=== PATIENT | male | born 1965 | race Caucasian/White ===

== ENCOUNTER 2024-09-27 15:12 | Emergency (ER) | payer BC, SELFPAY ==
[2024-09-27] VITALS (20 sets, daily range): BP systolic 142–166; BP diastolic 86–103; PULSE 70–89; RESP 13–20; TEMP 36.3–36.7; O2SAT 94–96
--- NOTE | 2024-09-27 15:15 | RT.EKG_ITS ---
APPROVED REPORT Exam: Resting ECG Reason for Exam: short of breath. Patient Location: E HR:86 bpm ECG Measurements Heart Rate 86 AXIS DC 151 P 47 QRSd 88 QRS 8 QT 357 T 31 QTc 427 Conclusion Sinus rhythm...normal P axis, V-rate 60- 99
--- NOTE | 2024-09-27 15:30 | DI.CT_ITS ---
Exam(s) CT CHEST PE CTA EXAM: CT CHEST PE CTA CLINICAL HISTORY: shortness of breath, ?PE. TECHNIQUE: Imaging Protocol: Axial CT angiography was performed with multi-slice acquisition and mu lti-planar reconstructions as well as axial, coronal and sagittal MIP reconstructions. Computer aided detection (CAD) was utilized. CONTRAST MATERIAL: Intravenous: Omnipaque 350 Contrast volume:100 ml COMPARISON: No exams were available for comparison FINDINGS: Pulmonary Arteries: No evidence of filling defect to suggest pulmonary emboli. Mediastinum and Mayelin: No dominant adenopathy or fluid collection. Pulmonary parenchyma: No consolidation or dominant measurable mass. Linear atelectasis at the lung bases. Dependent changes. Pleura: No effusion or pneumothorax. Heart: The heart is not dilated. No coronary artery calcifications are seen. Aorta: Thoracic aorta non-dilated. No dissection. Upper abdomen: No acute findings. Bones: Old mild L1 compression fracture. Degenerative changes of the thoracic spine. Tubes, Catheters, and Lines: None Soft tissues: Unremarkable. IMPRESSION: No evidence of pulmonary embolism or other acute abnormality. RADIATION DOSE DELIVERED: Total DLP DATA REPOSITORY: All CT scans at this facility are submitted to the National Radiology Data Registry (NRDR) Dose Index Registry (DIR) with the [employer] (A[employer]). RADIATION OPTIMIZATION: All CT scans at this facility use at least one of these dose optimization te chniques: automated exposure control; mA and/or kV adjustment per patient size (includes targeted exa ms where dose is matched to clinical indication); or iterative reconstruction.
--- NOTE | 2024-09-27 15:33 | ED.GENADUL_ITS ---
Discharge Plan Disposition Patient Disposition: Home Condition: Stable Discharge Details Clinical Impression: Shortness of breath Primary Care Provider: None,None ED Provider: Denny Reyes Home Meds and New Rx's Prescriptions: Continued testosterone cream 1 applic topical BID Discharge Instructions Additional Instructions: Your blood work, EKG and CAT scan did not show any concerning findings at this time. You could have sleep apnea, I would recommend following up with your primary care provider soon as you establish with 1. You may want to asked to be referred for a sleep study especially if this continues If you feel more ill, have severe worsening shortness of breath or severe chest pain return to the emergency department for reevaluation HPI General Mode of arrival: ambulatory . Date/Time Provider Initiated Documentation: 09/27/24 15:13 . Limitations to Documentation: no limitations . Information obtained by: patient . History of Present Illness 59 year old M presents to the emergency department with the chief complaint of interrmittent episodes of dyspnea, described as moderate, and it has been constant. No relieving factors improve symptom(s), No exacerbating factors reported . Patient notes shortness of breath; denies chest pain, fever/chills and nausea/vomiting. Patient did receive the following treatments prior to a rrival, none Related Data Home Medications ?Medication ?Instructions ?Recorded ?Confirmed testosterone 1 applic topical BID 09/27/24 09/27/24 Allergies Allergy/AdvReac Type Severity Reaction Status Date / Time No Known Allergies Allergy Unverified 09/27/24 15:23 General Stated Complaint: RespSymp CAITLIN: 3 Review of Systems All systems reviewed & are unremarkable except as noted in HPI and below Constitutional Constitutional: Denies chills, Denies fever(s) and Denies weakness Cardiovascular Cardiovascular: Denies chest pain and Reports dyspnea Respiratory Respiratory: Denies cough and Reports dyspnea Gastrointestinal Gastrointestinal: Denies abdominal pain, Denies nausea and Denies vomiting Integumentary/Breasts Skin/Breast: Denies rash Neurologic Neurologic: Denies weakness Exam Const General: no acute distress Orientation: alert HENMT Head: normal to inspection Ears: external ears normal General nose exam: external nose normal Mouth: moist mucous membranes Eyes General: appearance normal, both eyes and all related structures Neck Neck: normal visual inspection Resp Effort & Inspection: normal respiratory effort and able to speak in complete sentences Auscultation: clear to auscultation bilaterally Cardio Jugular venous pressure: no JVD Rate: regular rate Heart Sounds: no murmurs GI Palpation: soft and nontender Skin General skin exam: no rashes or lesions noted Neuro General: patient alert and patient oriented x3 Extrem General: normal to inspection Psych Mental Status: mental status grossly normal Course Vital Signs Vital signs: Vital Signs Temperature 36.3 C L 09/27/24 15:16 Pulse 89 09/27/24 15:16 Respiratory Rate 20 09/27/24 15:16 Blood Pressure 160/93 H 09/27/24 15:16 Pulse Oximetry 95 09/27/24 15:16 Temperature 36.3 C L 09/27/24 15:21 Pulse 89 09/27/24 15:21 Respiratory Rate 20 09/27/24 15:21 Respiratory Effort Normal 09/27/24 15:21 Blood Pressure 160/93 H 09/27/24 15:21 Blood Pressure Position Sitting 09/27/24 15:21 Pulse Oximetry 95 09/27/24 15:21 Oxygen Delivery Method Room Air 09/27/24 15:21 Oxygen Flow Rate 0 09/27/24 15:16 Medical Decision Making 59-year-old male who denies any chronic medical problems though he does not see a provider regularly comes in with several weeks of intermittent episodes of shortness of breath. He says that he notices him sometimes when he sleeping and wakes up feeling short of breath and normally gets better when he walks outside. Denies any increased symptoms with exertion, no chest pain or tightness. No chest pressure. No fevers. He is ambulating with no visible signs of respiratory distress on arrival. He is oriented x 4, he has clear lung sounds, no JVD or leg swelling. Given the symptoms do occur while he is sleeping p rimarily I do suspect he could have sleep apnea. I will check for possible NSTEMI with troponins, check a CBC to evaluate for anemia and also check for electrolyte abnormalities with a metabolic panel. Will also obtain a CTA of the chest to exclude PE. Patient stable and has been asymptomatic during stay here. Labs and CT show no acute findings. Given reassuring workup feel he is stable for discharge and follow-up with his PCP, return precautions given Differential Diagnosis Differential Diagnosis: Sleep apnea, anemia, NSTEMI, PE Lab Data Lab results reviewed: Yes I reviewed the patient's lab results. ECG Data Attestation: I personally reviewed and interpreted this ECG (s) as follows: Prior ECG tracings: not available for review Interpretation: sinus rate of 86 pr 151 no stemi Quality:SDOH Health Related Social Needs: No Data to Display PFSH All Active Problems (Updated 09/27/24 @ 17:06 by Denny Reyes MD) Shortness of breath (Acute) Social History Smoking risk assessment performed?: No PAWSS Have you Been Recently Intoxicated or Drunk Within the Last 30 days?: No Have you Ever Experienced Previous Episodes of Alcohol Withdrawal?: No Have you ever Experienced Withdrawal Seizures?: No Have you ever Experienced Delirium Tremens(DT)s?: No Have you ever undergone Alcohol Rehabilitation Treatment (i.e, inpt ot outpatient treatment programs)?: No Have you ever Experienced Blackouts?: No Have you ever Combined Alcohol with other Downers within the last 90 days?: No Have you ever Combined Alcohol with any other Substance of Abuse during the last 90 days?: No Positive Blood Alcohol level on Presentation? [PCS.BAL]: No Evidence of Increased Autonomic Activity (i.e. HR>120, tremor, sweating, agitation, nausea)?: No Result: 0
[2024-09-27 15:47] LABS: Abs Immature Grans 0.06 10^3/uL (0.0-0.06); Absolute Eosinophil Count 0.28 10^3/uL (0.0-0.7); Absolute Lymphocyte Count 2.48 10^3/uL (1.2-3.4); Absolute Monocyte Count 0.77 10^3/uL (0.1-0.8); Absolute Neutrophil Count 6.55 10^3/uL (1.2-6.7); Eosinophils % 2.7 %; HGB 14.4 g/dL (13.5-17.5); Immature Grans % 0.6 %; Lymphocytes % 24.2 %; MCH 29.3 pg (27.0-33.0); MCHC 32.7 % (32.0-36.0); MCV 90 fL (80-95); MPV 8.9 fL (8.0-11.0); Monocytes % 7.5 %; Platelet Count 196 10^3/uL (130-400); RBC 4.91 10^6/uL (4.36-5.78); RDW 12.5 % (11.8-14.1); RDW-SD 41.1 fL; WBC 10.24 10^3/uL (4.4-10.8)
[2024-09-27 16:08] LABS: ALT 30 U/L (16-63); AST 21 U/L (15-37); Albumin 3.7 g/dL (3.4-5.0); Alkaline Phosphatase 71 U/L (46-116); Anion Gap 4.4 mmol/L (3-11); BUN 13 mg/dL (7-18); Bilirubin, Total 0.24 mg/dL (0.2-1.0); CO2 30.6 mmol/L (21.0-32.0); CREATININE 1.1 mg/dL (0.70-1.30); Calcium 9.2 mg/dL (8.5-10.1); Chloride 105 mmol/L (98-107); Estimated GFR 77.81 (mL/min/1.73m2); Glucose 105 mg/dL (74-106); Magnesium 1.9 mg/dL (1.8-2.4); NT-proBNP 80 pg/mL (<300); Potassium 3.9 mmol/L (3.5-5.1); Sodium 140 mmol/L (136-145); TSH (W/Ref FT4) 2.08 uIU/mL (0.36-3.74); Total Protein 7.5 g/dL (6.4-8.2); Troponin I 5 ng/L (<or=76)
[2024-09-27] MEDS: Normal Saline - Diluent 50 ML VIAL IJ (16:32)
[2024-09-27] MEDS: Omnipaque 350 MG/ML 100 ML BTL IJ (16:33)
[2024-09-27 16:56] LABS: Troponin I 5 ng/L (<or=76)
== END 2024-09-27 17:32 | disposition home or self-care (01) ==
LOC: ER 17:17
PROVIDERS: Emergency Provider Emergency Medicine
DX: R06.09 Other forms of dyspnea (principal)
CPT/HCPCS: 71275; 80053; 93005; 99285; 83735; 83880; 84443; 84484; 85025; 93010; 99284; J3490

== ENCOUNTER 2024-10-25 06:12 | Emergency (ER) | payer BC, SELFPAY ==
[2024-10-25] VITALS (35 sets, daily range): BP systolic 118–163; BP diastolic 73–89; PULSE 94–140; RESP 16–27; TEMP 38.1–39.4; O2SAT 92–95
--- NOTE | 2024-10-25 06:15 | RT.EKG_ITS ---
APPROVED REPORT Exam: Resting ECG Reason for Exam: SOB Patient Location: E HR:124 bpm ECG Measurements Heart Rate 124 AXIS HI 134 P 46 QRSd 89 QRS 20 QT 300 T 53 QTc 431 Conclusion Sinus tachycardia...rate> 99 Probable left atrial enlargement...P >50mS, <-0.10mV V1 appropriate intervals no ST segment or T wave abnormalities to suggest occlusive IN
[2024-10-25 06:49] LABS: BE (Venous) 4 mmol/L (-2-3); HCO3 (Venous) 28 mmol/L (23-28); Lactate 0.8 mmol/L (0.6-1.4); O2 Sat (Venous) 76 %; TCO2 (Venous) 25 mmol/L (24-29); pCO2 (Venous) 42 mmHg (41-51); pH (Venous) 7.44 (7.31-7.41); pO2 (Venous) 37 mmHg
[2024-10-25 06:51] LABS: Abs Immature Grans 0.03 10^3/uL (0.0-0.06); HCT 43.5 % (40.0-50.0); HGB 14.4 g/dL (13.5-17.5); MCH 29.3 pg (27.0-33.0); MCHC 33.1 % (32.0-36.0); MCV 88 fL (80-95); Platelet Count 166 10^3/uL (130-400); RBC 4.92 10^6/uL (4.36-5.78); RDW 12.2 % (11.8-14.1); RDW-SD 40.1 fL; WBC 10.95 10^3/uL (4.4-10.8)
--- NOTE | 2024-10-25 06:52 | ED.GENADUL_ITS ---
Discharge Plan Discharge Details Chief Complaint: Fever Clinical Impression: Fever, Tachycardia Primary Care Provider: None,None ED Provider: Daisha Frias Home Meds and New Rx's Prescriptions: No Action testosterone cream 1 applic topical BID anastrozole 1 mg tablet Patient Comments: TAKE ONE TABLET BY MOUTH EVERY WEEK SWALLOWING THE WHOLE TABLET WITH 6-8 O UNCES OF WATER ON AN EMPTY STOMACH REMAIN UPRIGHT FOR AT LEAST 30 HPI General Mode of arrival: ambulatory . Date/Time Provider Initiated Documentation: 10/25/24 06:15 . Limitations to Documentation: no limitations . Information obtained by: patient . HPI Narrative: 59yo previously health male presenting for fever. Has had about one week of persistent sore throat, worsening. No difficulty with secretions, able to take PO without issue however has had minimal appetite for the past week. For the past two days has felt warm; purchased a thermometer yesterday and Tmax of 103F at home. Also has had a cough and mild shortness of breath for several months, currently being worked up by his PCP for this. He also reports unprotected sex about a week ago and would like to be tested for STI's; no symptoms including no dysuria, hematuria, penile discharge, testicular or penile pain. Otherwise in his usual state of health with no rash, nausea, vomiting, abdominal pain, chest pain, LE edema, or other concerns. Related Data Home Medications ?Medication ?Instructions ?Recorded ?Confirmed testosterone 1 applic topical BID 09/27/24 10/25/24 anastrozole 1 mg tablet mg 10/25/24 Allergies Allergy/AdvReac Type Severity Reaction Status Date / Time No Known Allergies Allergy Unverified 10/25/24 06:25 General Stated Complaint: Fever CAITLIN: 3 Review of Systems Narrative: see HPI Exam Narrative Exam Narrative: General: Alert, in no acute distress, slightly diaphoretic. Skin warm to the touch. Head: Normocephalic, atraumatic Neck: Trachea midline, ?Neck supple. ENT: ?MMM.? No oropharygeal lesions or exudate. Cardiac: ?Tachycardiac, regular, no murmurs appreciated Resp: No respiratory distress. CTAB. Abd: ?Soft, non-distended, nontender : ?No suprapubic tenderness. Extremities: ?No deformities.? No peripheral edema. Neurologic: GCS 15. ? Moves all extremities freely against gravity Course Vital Signs Vital signs: Vital Signs Temperature 39.4 C H 12/18/24 06:17 Pulse 140 H 10/25/24 06:17 Respiratory Rate 20 10/25/24 06:17 Blood Pressure 137/89 10/25/24 06:17 Pulse Oximetry 93 10/25/24 06:17 Temperature 39 C H 10/25/24 06:21 Temperature Source Oral 10/25/24 06:21 Pulse 140 H 10/25/24 06:21 Respiratory Rate 20 10/25/24 06:21 Blood Pressure 137/89 10/25/24 06:21 Blood Pressure Position Sitting 10/25/24 06:21 Pulse Oximetry 94 10/25/24 06:21 Oxygen Delivery Method Room Air 10/25/24 06:21 Oxygen Flow Rate 0 10/25/24 06:17 Pain Level 0 10/25/24 06:21 Lab/Test Results Lab/Test Results: 10/25/24 06:30 Tonsil - Not Specified Group A Streptococcus Culture - Pending 10/25/24 06:27 Blood Blood Culture - Pending 10/25/24 06:27 Blood Blood Culture - Pending Laboratory Tests Range/Units 10/25/24 06:39 VBG pH (7.31-7.41) 7.44 H VBG pCO2 (41-51) mmHg 42 VBG pO2 mmHg 37 VBG HCO3 (23-28) mmol/L 28 VBG Total CO2 (24-29) mmol/L 25 VBG O2 Saturation % 76 VBG Base Excess (-2-3) mmol/L 4 H VBG Lactate (0.6-1.4) mmol/L 0.8 Medical Decision Making 59yo previously health male presenting for fever for ~2 days, Tmax of 103F, with one week of sore throat and decreased appetite. Also requested STD testing as he had unprotected sex one week prior. Tachycardiac to 140 on arrival, febrile to 39.4. No hypotension. Some diaphoresis, otherwise reassuring physical exam. Aside from sore throat, no clear infectious symptoms. EKG sinus tachycardia, appropriate intervals, no ST segment or T wave abnormalities to suggest occlusive PA. No chest pain or acute shortness of breath to suggest ACS; would not send troponin. HR may be 2/t to temperature however certainly raises concern for sepsis though viral etiology seems most likely based on history. Will send blood cultures and give 1L IVFB while awaiting results of work, and treat fever with tylenol and IV toradol. With higher suspicion for viral etiology, would not treat empirically with abx at this time. VBG reassuring with no acidosis, lactate normal. Remainder of laboratory workup pending. Signed out to oncoming physican, plan to followup labs, CXR, UA, and reassess. Disposition pending results and clinical course. Quality:SDOH Health Related Social Needs: No Data to Display PFSH All Active Problems (Updated 10/25/24 @ 07:07 by Daisha Frias MD) Tachycardia (Acute) Fever (Acute) Shortness of breath (Acute) Social History Smoking/Tobacco Use Status: Never Smoking risk assessment performed?: Yes Alcohol Intake: current Alcohol Intake frequency: holidays/special occasions only Drug use: Never Substance use type: does not use Housing: apartment
[2024-10-25 07:08] LABS: Mono Screening Negative (Negative)
[2024-10-25] MEDS: Acetaminophen 500 MG TAB 1000 MG PO (07:09)
[2024-10-25] MEDS: Ketorolac 15 MG/ML VIAL IVP (07:09)
[2024-10-25] MEDS: Normal Saline 1,000 ML 1000 ML IV (07:10)
[2024-10-25 07:13] LABS: ALT 31 U/L (16-63); AST 27 U/L (15-37); Albumin 3.4 g/dL (3.4-5.0); Alkaline Phosphatase 74 U/L (46-116); Anion Gap 8.8 mmol/L (3-11); BUN 10 mg/dL (7-18); Bilirubin, Total 0.54 mg/dL (0.2-1.0); CO2 27.2 mmol/L (21.0-32.0); CREATININE 1.2 mg/dL (0.70-1.30); Calcium 8.3 mg/dL (8.5-10.1); Chloride 99 mmol/L (98-107); Glucose 130 mg/dL (74-106); Potassium 3.9 mmol/L (3.5-5.1); Sodium 135 mmol/L (136-145); Total Protein 7.6 g/dL (6.4-8.2)
--- NOTE | 2024-10-25 07:14 | DI.RAD_ITS ---
Exam(s) XR CHEST 2V PA LATERAL EXAM: XR CHEST 2V PA LATERAL CLINICAL HISTORY: fever, cough TECHNIQUE: 2D digital imaging was performed of the chest. Two images were obtained. PA and lateral views were obtained. COMPARISON: CT CT CHEST PE CTA from 09/27/2024 FINDINGS: MEDIASTINUM: Normal. HEART: Normal. PULMONARY VASCULATURE: Normal. LUNGS: No focal consolidating infiltrates. PLEURAL SPACE: No pleural effusion or pneumothorax. BONE:Within normal limits for the patient's age. OTHER FINDINGS:Normal. IMPRESSION: No acute pulmonary findings. DATA REPOSITORY: RADIATION DOSE DELIVERED:
--- NOTE | 2024-10-25 07:22 | W.PCEDHO ---
Registration Status: Primary Language: Preferred Language: ED Information & Data Chief Complaint Fever 10/25/24 06:58 Triage Note pt c/o sore throat, fever, 10/25/24 06:17 chronic cough, no appetite and unprotected sex this past weekend and would like to be tested for STD and elevated HR. denies CP or SOB Most Recent Vital Signs Temperature 39 C H 10/25/24 06:21 Temperature Source Oral 10/25/24 06:21 Pulse 118 H 10/25/24 06:37 Pulse 121 H 10/25/24 06:40 Respiratory Rate 21 10/25/24 06:40 Blood Pressure 163/84 H 10/25/24 06:37 Blood Pressure Mean 113 10/25/24 06:37 Blood Pressure Position Sitting 10/25/24 06:21 Pulse Oximetry 95 10/25/24 06:50 Oxygen Delivery Method Room Air 10/25/24 06:21 Oxygen Flow Rate 0 10/25/24 06:17 Pain Level 6 10/25/24 07:09 Allergies No Known Allergies Allergy (Unverified 10/25/24 06:25) Precautions Isolation PUI 10/25/24 06:21 Active Medications Generic Name Dose Route Start Last Admin Trade Name Freq PRN Reason Stop Dose Admin Sodium Chloride 1,000 mls @ 1,000 mls/hr 10/25/24 06:27 10/25/24 07:10 Saline 1000ml Bag IV 10/25/24 07:26 1,000 mls/hr BOLUS ONE Administration IV IV Catheter Type [Right Saline Lock Antecubital] IV Catheter Gauge [Right 18 Antecubital] Diagnostics 10/25/24 10/25/24 10/25/24 Range/Units 07:17 06:58 06:39 WBC RBC Hgb Hct MCV MCH MCHC RDW Plt Count MPV Immature Gran % Neutrophils % Lymphocytes % Monocytes % Eosinophils % Basophils % Absolute Neutrophils Absolute Lymphocytes Absolute Monocytes Absolute Eosinophils Absolute Basophils VBG pH (7.31-7.41) VBG pCO2 (41-51) mmHg VBG pO2 mmHg VBG HCO3 (23-28) mmol/L VBG Total CO2 (24-29) mmol/L VBG O2 Saturation % VBG Base Excess (-2-3) mmol/L VBG Lactate (0.6-1.4) mmol/L Sodium (136-145) mmol/L Potassium (3.5-5.1) mmol/L Chloride (98-107) mmol/L Carbon Dioxide (21.0-32.0) mmol/L Anion Gap (3-11) mmol/L BUN (7-18) mg/dL Creatinine (0.70-1.30) mg/dL Est GFR (CKD-EPI 2020) (mL/min/1.73m2) Glucose (74-106) mg/dL Calcium (8.5-10.1) mg/dL Total Bilirubin (0.2-1.0) mg/dL AST (15-37) U/L ALT (16-63) U/L Alkaline Phosphatase (46-116) U/L NT-Pro-B Natriuret Pep Total Protein (6.4-8.2) g/dL Albumin (3.4-5.0) g/dL Urine Color Pending Urine Clarity Pending Urine pH Pending Ur Specific [place] Pending Urine Protein Pending Urine Ketones Pending Urine Blood Pending Urine Nitrite Pending Urine Bilirubin Pending Urine Urobilinogen Pending Ur Leukocyte Esterase Pending Urine Glucose Pending Chlamydia DNA Probe Pending Chlamydia/GC DNA Source Pending COVID-19 Source SARS-CoV-2 (PCR) Hep B Core Total Ab Pending Hepatitis C Antibody Pending Monoscreen (Negative) HIV 1&2 Ag/Ab, 4th Gen Pending HIV 1&2 Antibody Rapid Pending Influenza Type A (PCR) Influenza Type B (PCR) N.gonorrhoeae DNA Probe Pending RSV (PCR) 10/25/24 10/25/24 Range/Units 06:39 06:30 WBC Pending RBC Pending Hgb Pending Hct Pending MCV Pending MCH Pending MCHC Pending RDW Pending Plt Count Pending MPV Pending Immature Gran % Pending Neutrophils % Pending Lymphocytes % Pending Monocytes % Pending Eosinophils % Pending Basophils % Pending Absolute Neutrophils Pending Absolute Lymphocytes Pending Absolute Monocytes Pending Absolute Eosinophils Pending Absolute Basophils Pending VBG pH 7.44 H (7.31-7.41) VBG pCO2 42 (41-51) mmHg VBG pO2 37 mmHg VBG HCO3 28 (23-28) mmol/L VBG Total CO2 25 (24-29) mmol/L VBG O2 Saturation 76 % VBG Base Excess 4 H (-2-3) mmol/L VBG Lactate 0.8 (0.6-1.4) mmol/L Sodium 135 L (136-145) mmol/L Potassium 3.9 (3.5-5.1) mmol/L Chloride 99 (98-107) mmol/L Carbon Dioxide 27.2 (21.0-32.0) mmol/L Anion Gap 8.8 (3-11) mmol/L BUN 10 (7-18) mg/dL Creatinine 1.2 (0.70-1.30) mg/dL Est GFR (CKD-EPI 2020) 70.10 (mL/min/1.73m2) Glucose 130 H (74-106) mg/dL Calcium 8.3 L (8.5-10.1) mg/dL Total Bilirubin 0.54 (0.2-1.0) mg/dL AST 27 (15-37) U/L ALT 31 (16-63) U/L Alkaline Phosphatase 74 (46-116) U/L NT-Pro-B Natriuret Pep Pending Total Protein 7.6 (6.4-8.2) g/dL Albumin 3.4 (3.4-5.0) g/dL Urine Color Urine Clarity Urine pH Ur Specific [place] Urine Protein Urine Ketones Urine Blood Urine Nitrite Urine Bilirubin Urine Urobilinogen Ur Leukocyte Esterase Urine Glucose Chlamydia DNA Probe Chlamydia/GC DNA Source COVID-19 Source Pending SARS-CoV-2 (PCR) Pending Hep B Core Total Ab Hepatitis C Antibody Monoscreen Negative (Negative) HIV 1&2 Ag/Ab, 4th Gen Cancelled HIV 1&2 Antibody Rapid Influenza Type A (PCR) Pending Influenza Type B (PCR) Pending N.gonorrhoeae DNA Probe RSV (PCR) Pending 10/25/24 06:27 Blood Culture - Pending Blood 10/25/24 06:30 Group A Streptococcus Culture - Pending Tonsil - Not Specified 10/25/24 06:27 Blood Culture - Pending Blood Intake and Output - 24 Hour Total 10/25/24 06:12 thru 10/25/24 06:55 Intake Total 10 Balance 10 Weight 99.79 kg Intake: IV 10 Falls Risk Assessment History of Falls No History 10/25/24 06:21 Contributing Factors No Factors 10/25/24 06:21 Ambulatory Aids Independent 10/25/24 06:21 Tubes/Lines None 10/25/24 06:21 Gait Evaluation No gait disturbance 10/25/24 06:21 Cognition No cognitive impairment 10/25/24 06:21 Fall Total Score 0 10/25/24 06:21 Level of Risk Standard/Low Risk 10/25/24 06:21 v v v v v v v v v Sending and/or Receiving Nurses: Please use comment section below to note any information pertinent to the patient hand-off not included above. Information / Comments: Report received from: Report received from Victor Manuel Stein RN @ 6:40am.
[2024-10-25 07:29] LABS: COVID-19 PCR Negative (Negative); Influenza A PCR Negative (Negative); Influenza B PCR Negative (Negative); RSV PCR Negative (Negative)
[2024-10-25 07:31] LABS: NT-proBNP 163 pg/mL (<300)
[2024-10-25 07:33] LABS: Source Nasopharynx
[2024-10-25 07:39] LABS: Bilirubin Small (Negative); Blood Trace-intact (Negative); Clarity Clear (Clear); Glucose Negative (Negative); Ketones 40 mg/dL (Negative); Leukocyte Esterase Negative (Negative); Nitrite Negative (Negative); Specific Gravity >= 1.030 (1.005-1.025); Urobilinogen 0.2 mg/dL (Up to 0.2)
[2024-10-25 07:42] LABS: Absolute Eosinophil Count 1.42 10^3/uL (0.0-0.7); Absolute Lymphocyte Count 0.99 10^3/uL (1.2-3.4); Absolute Monocyte Count 0.66 10^3/uL (0.1-0.8); Absolute Neutrophil Count 7.88 10^3/uL (1.2-6.7); Atypical Lymphocytes % 0 %; Bands % 0 %; Metamyelocytes % 0; Myelocytes % 0; Promyelocytes % 0
[2024-10-25 07:43] LABS: Diff Comment Manual Differential
[2024-10-25 07:57] LABS: Bacteria Few HPF (Negative); C & S Indicated? No; Casts Negative LPF (Negative); Crystals Negative HPF (Negative); Epithelial Cells Rare HPF (Negative); Mucus Heavy (Negative); Other Cells Negative (Negative)
--- NOTE | 2024-10-25 09:16 | W.EDPROG ---
Date of service: 10/25/24 Time of Service: 09:17 Medical Decision Making Patient's workup relatively unremarkable, minimal elevation of his white count at 10.9, he does have labs pending including a tick panel, HIV screening and hepatitis panel. He says he unprotected sex on Wednesday so would be very unlikely that his fever and symptoms are due to HIV is quick. X-ray on my read is unremarkable. He is stable, he was sleeping when I reassessed him and awakens easily to voice. He feels significantly better after having Toradol. He has no meningismus, no headaches. No cough, clear lung sounds. He denies any IV drug use and has no murmurs, no rashes or lesion on his hand or feet so I doubt endocarditis. His primary complaint other than the fever was a sore throat, his posterior pharynx does have erythema, midline uvula, no submandibular swelling, no pain over the hyoid restricted neck movements. He has no findings on exam to suggest epiglottitis, retropharyngeal abscess or peritonsillar abscess. Given the sore throat and fever and erythema of the posterior pharynx neck is reasonable to initiate antibiotics for potential bacterial pharyngitis and possibly strep. He feels well enough for discharge, he will follow-up with his PCP if symptoms continue and return precautions given Quality:SDOH Health Related Social Needs: No Data to Display Discharge Plan Disposition Patient Disposition: Home Condition: Stable Discharge Details Clinical Impression: Fever, Tachycardia, Sore throat Primary Care Provider: None,None ED Provider: Denny Reyes Home Meds and New Rx's Prescriptions: New amoxicillin 875 mg tablet 875 mg PO BID 7 Days Qty: 14 0RF Continued testosterone cream 1 applic topical BID anastrozole 1 mg tablet Patient Comments: TAKE ONE TABLET BY MOUTH EVERY WEEK SWALLOWING THE WHOLE TABLET WITH 6-8 OUNCES OF WATER ON AN EMPTY STOMACH REMAIN UPRIGHT FOR AT LEAST 30 Discharge Instructions Additional Instructions: Your blood work today was unremarkable. There are still pending test such as an HIV screening and hepatitis screen as well as a tick panel screening. If any of these are positive you will receive a phone call Follow-up with your primary care provider especially if symptoms continue in a week If you feel more ill, have inability to swallow liquids or new symptoms such as persistent vomiting or difficulty breathing return to the emergency department for reevaluation
[2024-10-25] MEDS: Amoxicillin 875 MG TAB PO (09:25)
--- NOTE | 2024-10-25 09:40 | DI.VRAD_ITS ---
PROCEDURE INFORMATION: Exam: XR Chest Exam date and time: 10/25/2024 7:04 AM Age: 59 years old Clinical indication: Cough and fever; Patient HX: Cough, fever TECHNIQUE: Imaging protocol: Radiologic exam of the chest. Views: 2 views. COMPARISON: CT CHEST PE CTA 09/27/2024 4:37 PM FINDINGS: Lungs: There are persistent streaky linear bibasilar opacities, suspected scarring. No consolidation. No pulmonary edema. The pulmonary vasculature is normal in caliber. Pleural spaces: No pleural effusion or pneumothorax. Heart/Mediastinum: Heart size and cardiomediastinal contours are normal. There is atherosclerotic mural calcification at the aortic arch. Bones/joints: Unremarkable. IMPRESSION: No acute cardiopulmonary abnormality. No consolidation. Dictated and Authenticated by: Myra Luevano MD. Ordering:LANA Ashton MD
[2024-10-25 11:50] LABS: Lab Add On Test DONE
[2024-10-25 20:54] LABS: Hep B Core Antibody Negative (Negative)
[2024-10-25 20:56] LABS: HIV-1/2 Ag & Ab Screen Negative (Negative)
[2024-10-25 21:01] LABS: Hepatitis C Ab w Rflx HCV PCR Negative (Negative)
[2024-10-26 09:47] LABS: Lyme Ab w Rflx to Lyme Confirm Negative (Negative)
[2024-10-26 12:51] LABS: Chlamydia Result Negative (Negative); GC Result Negative (Negative)
[2024-10-28 15:32] LABS: Anaplasma phagocytophilum Negative (Negative); B. miyamotoi PCR Negative (Negative); Babesia divergens/MO-1 Negative (Negative); Babesia duncani Negative (Negative); Babesia microti Negative (Negative); Ehrlichia chaffeensis Negative (Negative); Ehrlichia ewingii/canis Negative (Negative); Ehrlichia muris eauclairensis Negative (Negative)
== END 2024-10-25 09:32 | disposition home or self-care (01) ==
PROVIDERS: Student in an Organized Health Care Education/Training Program; Emergency Provider Emergency Medicine
DX: R50.9 Fever, unspecified (principal); R05.9 Cough, unspecified; R00.0 Tachycardia, unspecified
CPT/HCPCS: 00123; 36415; 80053; 82805; 86704; 86803; 87040; 87389; 87491; 87591; 87637; 87798; 93005; 96361; 96374; 99285; 71046; 81003; 81015; 83605; 83880; 85025; 86308; 86618; 87081; 93010; 99284; J1885

== ENCOUNTER 2024-11-10 01:27 | Outpatient (CLI) | payer BC, SELFPAY ==
--- OUTSIDE RECORDS SUMMARY | 2024-11-10 01:29 | XMS_ITS | Encounter Summary ---
Author Organization [facility] Address [address] [place] [address] Care Team Providers Care Assistant Chief Train Dispatcher Name Role Phone Tony Bose MD Primary Care Provid er Reason for Visit * Reason Comments Back Pain Encounter Details Date Type Department Care Team (Late st Contact Info) Description 01/10/2013 14:30 EST Office Visit [facility] Spine Program - [address] [place] [address] Ena Johnston MD [address] [place] [address] [place] [address] Fracture of transverse process of thoracic vertebra (CMS-HCC) (HCC-CMS) (Primary Dx); L2 vertebral fracture (CMS-HCC) (HCC-CMS); Left scapula fracture; Multiple trauma; Snowboarding accident; Wedge compression fracture of T9 vertebra (CMS-HCC) (HCC-CMS) Discharge Disposition: Auto Discharge Social History Tobacco Use Types Packs/Day Years Used Date Smoking Tobacco: Never Alcohol Use Standard Drinks/Week Comments No 0 (1 standard drink = 0.6 oz pur e alcohol) Sex and Gender Information Value Date Recorded Sex Assigned at Not on file Legal Sex Male 18:36 EST Gender Identity Not on file Sexual Orientation Not on file documented as of this encounter Mental Status * Because of a physical, mental, or emotional condition, do you have serious difficulty concentrating, remembering, or making decisions? (5 years old or older) Answer Entry Date Author Yes 11/26/2012 21:58 EST Lydia Sutton documented in this encounter Discharge Disposition Disposition Code Departure Means Destination Auto Discharge documented in this encounter Progress Notes * Karen Johnston MD - 01/11/2013 7407 EST PROBLEM: Skiing crash 11/26/2012: 1. A left scapular body fracture, minimally displaced. 2. Left transverse process fractures of T3 to T9. 3. A T9 anterior superior endplate compression fracture. 4. An L1 two-column burst fracture with minimal height loss and some retropulsion. 1. TLSO bracing. 5. Post concussive symptoms Mr. Fernandez comes in for his 6 week follow up. He's on track, with a drop in his sharp pain as expected. He remains very fatigued. He is wearing his brace mostly director multimedia, has had it off some at night as I indicated he could. He continues to have some post concussive symptoms, mostly disorientation and difficulty concentrating - he is still taking narcotics which may contribute as well. Overall,however, he's up and around a bit more and doing okay. His left shoulder feels better; he has noticed a bump along the lateral margin of his sternum consistent with a rib head dislocation or fracture. No neurologic symptoms other than the occasional fit of tingling or oddness, which pass quickly. O: Xrays of the left scapula show interval callus formation. Xrays of the spine OOB demonstrate maintained alignment and some progressive healing at L1. His TLSO fits well, although he has lost some weight. MDM: Currently on course. I expect that his energy level, appetite will start to return over the next six weeks and that plus being able to wean off the narcotics will tell us that he's ready to start some rehab activity. In the meanwhile I have cleared him to have his brace off for quiet activities around his house, and to use an exercise bike with the brace on. We'll plan xrays in 6 weeks (upright lateral L centered at L1, T centered at T9) and if those look good we'll plan some formal rehab.Will need shoulder films with his spine films in May. Karen Johnston MD Cc. Patient. Dr. Bose documented in this encounter Plan of Treatment Not on file documented as of this encounter Visit Diagnoses Diagnosis Fracture of transverse process of thoracic vertebra (HCC-CMS)- Primary Closed fracture of dorsal (thoracic) vertebra without mention of spinal cord injury L2 vertebral fracture (HCC-CMS) Closed fracture of lumbar vertebra without mention of spinal cord injury Left scapula fracture Closed fracture of unspecified part of scapula Multiple trauma Injury, other and unspecified, other specified sites, including multiple Snowboarding accident Fall from snowboard Wedge compression fracture of T9 vertebra (HCC-CMS) Closed fracture of dorsal (thoracic) vertebra without mention of spinal cord injury documented in this encounter Care Teams Assistant Chief Train Dispatcher Relationship Specialty Start Date End Date Tony Bose MD [address] [place] [phone] PCP - General 11/26/12 documented as of this encounter
--- OUTSIDE RECORDS SUMMARY | 2024-11-10 01:29 | XMS_ITS | Encounter Summary ---
Author Organization [facility] Address [address] [place] [address] Care Team Providers Care Collet Making Machine Operator Name Role Phone Tony Bose MD Primary Care Provid er Reason for Referral * Consult, Test and Treat (Routine/Next Available) - Closed Specialty Diagnoses / Procedures Referred By Contac t Referred To Contact Diagnoses Vertebral fracture Scapular fracture Ena Johnston MD Phone: tel: fax: Referral ID Status Reason Start Date Expiration Date V isits Requested Visits Authorized [id number] Closed Specialty Services Required 02/22/2013 1 1 Question Answer Reason for Request: L1, T9, scapular fracture, sternal fx Comments Rehab gym. Starting brace wean, no specific restrictions, will need core work.Shou Shoulder ROM as tolerated. Reason for Visit * Reason Comments Back Pain Encounter Details Date Type Department Care Team (Late st Contact Info) Description 02/22/2013 8:30 EDT Office Visit [facility] Spine Program - [address] [id number] Ena Johnston MD [address] [facility] [place] [address] Vertebral fracture (Primary Dx); Scapular fracture; L2 vertebral fracture (CMS-HCC) (HCC-CMS); Wedge compression fracture of T9 vertebra (CMS-HCC) ([facility]-CMS) Discharge Disposition: Auto Discharge Social History Tobacco [...] Progress Notes * Karen Johnston MD - 02/22/2013 1005 EDT PROBLEM: Skiing crash 11/26/2012: 1. A left scapular body fracture, minimally displaced. 2. Left transverse process fractures of T3 to T9. 3. A T9 anterior superior endplate compression fracture. 4. An L1 two-column burst fracture with minimal height loss and some retropulsion. 1. TLSO bracing. 5. Post concussive symptoms Yunior comes in for routine follow up. He's now about four months out. He has started being out of his brace for short periods of time and that is going well. He wonders about returning to work schedule. We have not started formal rehabilitation yet. His shoulder has some localized burning and popping, but otherwise is doing okay. He is quite deconditioned. O: Xrays today demonstrate maintained alignment and interval healing of both fractures. MDM: We can start a formal brace wean and I have given him a referral to start PT with the [facility], with all exercise okay out of the brace. 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 With respect to work, I think it is still too early although it would be reasonable for him to do somelimited hours in a few weeks if his workplace is cooperative; that and his progress with rehab will give us some baseline information to help plan a more formal return to work as he gets to the 6 month jonh. I have given him paperwork for this and we will plan on meeting in 2 mos. Upright lateral Tcentered at T9 and L centered at L2 prior to being seen. Karen Johnston MD Cc. 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 __X_ Lifting limitations ____No lifting __X_ Reduced work hours __Maximum 3 hours until seen again ___ Restricted gym/athletic activities Other restrictions: DIAGNOSTIC TESTS PLANNED: Plan: Rehabilitation starting FOLLOW-UP PLANS: Scheduled appt: SpINE Date: 2 mos Other: None/PRN: Telephone call: When By Whom: Karen Johnston MD documented in this encounter Plan of Treatment Scheduled Referrals Name Type Priority Associated Diagnoses Orde r Schedule AMB CONSULT PHYSICAL THERAPY Outpatient Referral Routine Vertebral fracture Scapular fracture Ordered: 02/22/2013 documented as of this encounter Visit Diagnoses Diagnosis Vertebral fracture- Primary Closed fracture of unspecified part of vertebral column without mention of spinal cord injury Scapular fracture Closed fracture of unspecified part of scapula L2 vertebral fracture (HCC-CMS) Closed fracture of lumbar vertebra without mention of spinal cord injury Wedge compression fracture of T9 vertebra (HCC-CMS) Closed fracture of dorsal (thoracic) vertebra without mention of spinal cord injury documented in this encounter Care Teams Collet Making Machine Operator Relationship Specialty Start Date End Date Tony Bose MD [address] [place] [id number] PCP - General 11/26/12 documented as of this encounter
--- OUTSIDE RECORDS SUMMARY | 2024-11-10 01:29 | XMS_ITS | Encounter Summary ---
Author Organization [facility] Address [address] [place] [address] Care Team Providers Care Fryline Attendant Name Role Phone Tony Bose MD Primary Care Provid er Reason for Visit * Reason Onset Date Comments Appointment Related 04/28/2013 Encounter Details Date Type Department Care Team (Late st Contact Info) Description 04/28/2013 Telephone [facility] Spine Program - [address] [place] [address] Crystal Wesley MD [address] [place], [place] [address]ey [facility] [place] [address] Appointment Related Social History Tobacco Use Types Packs/Day Years [...] EST Lydia Sutton documented in this encounter Miscellaneous Notes * Telephone Encounter - Arturo Byrd Jr. - 04/28/2013 8610 EDT Pt notified for his appointment at Pain Medicine with Dr. Moreno on 05/01/13 with check in at 9:15 am. documented in this encounter Plan of Treatment Not on file documented as of this encounter Visit Diagnoses Not on filedocumented in this encounter Care Teams Fryline Attendant Relationship Specialty Start Date End Date Tony Bose MD [address] [place] [address] PCP - General 11/26/12 documented as of this encounter
--- OUTSIDE RECORDS SUMMARY | 2024-11-10 01:29 | XMS_ITS | Encounter Summary ---
Author Organization [facility] Address [address] [place] [address] Care Team Providers Care Computer Game Programmer Name Role Phone Tony Bose MD Primary Care Provid er Reason for Visit * Reason Onset Date Comments Trauma 12/06/2012 Encounter Details Date Type Department Care Team (Late st Contact Info) Description 12/06/2012 Orders Only [facility] Spine Program - [address] [place] [address] Burak Cates LPN [address] [place] [id number] Social History Tobacco Use Types Packs/Day Years [...] Entry Date Author Yes 11/26/2012 21:58 EST Nazariocindi Lydia susie documented in this encounter Ordered Prescriptions Prescription Sig Dispense Quantity Refills Last Filled Start Date End Date oxycodone (ROXICODONE) 5 mg immediate release tablet Take 1-2 Tabs by mouth every 4 hours as needed for Pain. 100 Tab 0 12/06/2012 10/10/2013 documented in this encounter Plan of Treatment Not on file documented as of this encounter Visit Diagnoses Not on filedocumented in this encounter Care Teams Computer Game Programmer Relationship Specialty Start Date End Date Tony Bose MD [address] [place] [address] PCP - General 11/26/12 documented as of this encounter
--- OUTSIDE RECORDS SUMMARY | 2024-11-10 01:29 | XMS_ITS | Encounter Summary ---
Author Organization [facility] Address [address] [place] [address] Care Team Providers Care Software Quality Analyst Name Role Phone Tony Bose MD Primary Care Provid er Reason for Visit * Reason Onset Date Comments Rib Pain 12/06/2012 Encounter Details Date Type Department Care Team (Late st Contact Info) Description 12/06/2012 Telephone [facility] Spine Program [place] [address] Burak Cates LPN [address] [place] [address] Rib Pain Social History Tobacco Use Types Packs/Day Years [...] encounter Miscellaneous Notes * Telephone Encounter - Burak Cates Jr., VARINDER - 12/06/2012 0838 EST Received a call from [place] Saying he was having problems with his pain medication inthat it is giving him very bad headaches every time he takes it. He now will only take when he really has to but otherwise is in a great deal of pain all the time.She is also worried about his brace not fitting well and causing a lump where one of his ribs are broken. I have asked them to come into the office if he is able to travel so we can have a look at things and possibly change his Rx. documented in this encounter Plan of Treatment Not on file documented as of this encounter Visit Diagnoses Not on filedocumented in this encounter Care Teams Software Quality Analyst Relationship Specialty Start Date End Date Tony Bose MD [address] [place] [id number] PCP - General 11/26/12 documented as of this encounter
--- OUTSIDE RECORDS SUMMARY | 2024-11-10 01:29 | XMS_ITS | Encounter Summary ---
Author Organization [facility] Address [address] [place] [address] Care Team Providers Care Cupola Repairer Name Role Phone Tony Bose MD Primary Care Provid er Encounter Details Date Type Department Care Team (Late st Contact Info) Description 07/09/2023 Lab Requisition [facility] Pathology & Laboratory Medicine - [facility] [address] [place] [address] Tony Bose MD [address] [place] [id number] Encounter for screening for malignant neoplasm of prostate Social History Tobacco Use Types Packs/Day Years Used Date Smoking Tobacco: Never Smokeless Tobacco: Never Alcohol Use Standard Drinks/Week Comments Yes 7 (1 standard drink = 0.6 oz pur e alcohol) occas PHQ-2 Answer Date Recorded PHQ-2 SUBTOTAL 0 02/19/2023 Interpersonal Safety Answer Date Record ed Physically Hurt Never 06/09/2020 Verbally Threaten Not on file 06/09/2020 Sex and Gender Information Value Date Recorded Sex Assigned at Not on file Legal Sex Male 18:36 EST Gender Identity Not on file Sexual Orientation Not on file documented as of this encounter Functional Status * Because of a physical, mental, or emotional condition, does this person have difficulty doing errands alone such as visiting a doctor's office or shopping? Answer Date of Assessment Author No 08/19/2016 7:37 EDT documented as of this encounter Mental Status * Because of a physical, mental, or emotional condition, does this person have serious difficulty concentrating, remembering, or making decisions? Answer Entry Date Author No 08/19/2016 7:37 EDT Wandy Sutton aret documented in this encounter Plan of Treatment Not on file documented as of this encounter Procedures Procedure Name Priority Date/Time Associated Diagnosis Comments PSA SCREEN Today 07/09/2023 19:09 EDT Encounter for screening for malignant neoplasm of prostate documented in this encounter Results * PSA SCREEN (07/09/2023 19:09 EDT) PSA 1.8 <=3.5 ng/mL 07/12/2023 8:59 EDT [facility] Blood VENOUS BLOOD / Unknown 07/09/2023 19:09 EDT 07/09/2023 20:20 EDT Narrative [facility] - 07/12/2023 8:59 EDT NOTE: Serum PSA concentration should not be interpreted as absolute evidence for the presence or absence of malignant disease. Assayed on Siemens EasilyDoIA Eco-Vacayaur XPT using chemiluminescent technology.??Values obtained by using different assay methods cannot be used interchangeably. us Tony Bose MD CHEMISTRY & BLOOD GA S ORDERABLES Final Result [facility] [address] [place] [address] documented in this encounter Visit Diagnoses Diagnosis Encounter for screening for malignant neoplasm of prostate Special screening for malignant neoplasm of prostate documented in this encounter Care Teams Cupola Repairer Relationship Specialty Start Date End Date Tony Bose MD [address] [place] [id number] PCP - General 11/26/12 documented as of this encounter
--- OUTSIDE RECORDS SUMMARY | 2024-11-10 01:29 | XMS_ITS | Encounter Summary ---
Author Organization [facility] Address [address] [place] [address] Care Team Providers Care Crude Oil Driver Name Role Phone Tony Bose MD Primary Care Provid er Encounter Details Date Type Department Care Team (Late st Contact Info) Description 10/25/2024 Lab Requisition [facility] Pathology & Laboratory Medicine - [facility] [address] [place] [address] Outr Resulting Lab, Provider Social History Tobacco Use Types Packs/Day Years [...] Procedure Name Priority Date/Time Associated Diagnosis Comments HEPATITIS C AB W REFLEX TO HCV RNA BY PCR Routine 10/25/2024 6:39 EST HEPATITIS B CORE ANTIBODY (TOTAL) Routine 10/25/2024 6:39 EST documented in this encounter Results * HEPATITIS B CORE ANTIBODY (TOTAL) (10/25/2024 6:39 EST) Hepatitis B Core Ab, Total Negative Negative 10/25/2024 20:49 EST [facility] Blood VENOUS BLOOD / Unknown 10/25/2024 6:39 EST 10/25/2024 17:38 EST us Provider Outr Resulting Lab CHEMISTRY & BLOOD GA S ORDERABLES Final Result Performing Organization Address [facility] Co de Phone Number [facility] [address] [place] [address] * HEPATITIS C AB W REFLEX TO HCV RNA BY PCR (10/25/2024 6:39 EST) Hep C Antibody Negative Negative 10/25/2024 20:56 EST [facility] Blood VENOUS BLOOD / Unknown 10/25/2024 6:39 EST 10/25/2024 17:38 EST us Provider Outr Resulting Lab CHEMISTRY & BLOOD GA S ORDERABLES Final Result Performing Organization Address City/[facility]/ZIP Co de Phone Number [facility] [address] [place], [place] [phone] documented in this encounter Visit Diagnoses Not on filedocumented in this encounter Care Teams Crude Oil Driver Relationship Specialty Start Date End Date Tony Bose MD [address] [place] [id number] PCP - General 11/26/12 documented as of this encounter
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
--- OUTSIDE RECORDS SUMMARY | 2024-11-10 01:29 | XMS_ITS | Encounter Summary ---
Author Organization [facility] Address [address] [place] [address] Care Team Providers Care Gear Changer Name Role Phone Tony Bose MD Primary Care Provid er Encounter Details Date Type Department Care Team (Late st Contact Info) Description 05/09/2020 Lab Requisition [facility] Pathology & Laboratory Medicine - [facility] [address] [place] [address] Rakesh Casanova MD [address] [place] [address] [place] [phone] Neoplasm of uncertain behavior of skin Social History Tobacco Use Types Packs/Day Years [...] Author No 08/19/2016 7:37 EDT Wandy Sutton aretenzin documented in this encounter Plan of Treatment Not on file documented as of this encounter Procedures Procedure Name Priority Date/Time Associated Diagnosis Comments SURGICAL PATHOLOGY Today 05/09/2020 10 :46 EDT Neoplasm of uncertain behavior of skin documented in this encounter Results * SURGICAL PATHOLOGY (05/09/2020 10:46 EDT) Final Diagnosis A. SKIN OF CHEEK, LEFT SUPERIOR CENTRAL MALAR, SHAVE BIOPSY: - Basal cell carcinoma, nodular type. - Lesion extends to biopsy base. 05/13/2020 9:25 EDT [facility] at 0925 Attestation By the signature below, the attending physician certifies that they have 1) personally conducted a gross and/or microscopic examination of the described specimen(s), and/or personally interpreted the results of laboratory testing of the described specimen(s), and 2) personally rendered or confirmed the above diagnosis. 05/13/2020 9:25 EDT [facility] at 0925 Clinical History 4 mm eroded papule; rule-out basal cell carcinoma 05/13/2020 9:25 EDT [facility] Gross Description A. Received in formalin labelled with proper patient identification (initials M, S) and A. Left superior central malar... is a shave biopsy of relatively smooth pale cutler focally cutler skin (0.7 x 0.4 x 0.1 cm). The margin is inked blue. The specimen is bisected and entirely submitted in A1. Jack Sumner 05/11/2020 13:00 05/13/2020 9:25 EDT [facility] Scanned Images 05/13/2020 9:25 EDT [facility] Tissue TISSUE SPECIMEN FROM SKIN / Unknown 05/09/2020 10:46 EDT 05/09/2020 19:33 EDT us Rakesh Casanova MD PATHOLOGY ORDERABLES Fi nal Result [facility] [address] [place] [address] documented in this encounter Visit Diagnoses Diagnosis Neoplasm of uncertain behavior of skin documented in this encounter Care Teams Gear Changer Relationship Specialty Start Date End Date Tony Bose MD [address] [place] [id number] PCP - General 11/26/12 documented as of this encounter
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
--- OUTSIDE RECORDS SUMMARY | 2024-11-10 01:29 | XMS_ITS | Encounter Summary ---
Author Organization [facility] Address [address] [place] [address] Care Team Providers Care Impregnating Helper Name Role Phone Tony Bose MD Primary Care Provid er Encounter Details Date Type Department Care Team (Late st Contact Info) Description 12/15/2012 Abstract [facility] - [address] [address] Apple Gonzalez PA-C [address] [place] [phone] Social History Tobacco Use Types Packs/Day Years [...] Author Yes 11/26/2012 21:58 EST Nazariocindi Lydia richards documented in this encounter Plan of Treatment Not on file documented as of this encounter Visit Diagnoses Not on filedocumented in this encounter Care Teams Impregnating Helper Relationship Specialty Start Date End Date Tony Bose MD [address] [place] [address] PCP - General 11/26/12 documented as of this encounter
--- OUTSIDE RECORDS SUMMARY | 2024-11-10 01:29 | XMS_ITS | Encounter Summary ---
Author Organization [facility] Address [address] [place] [address] Care Team Providers Care Roll Or Tape Edge Machine Operator Name Role Phone Tony Bose MD Primary Care Provid er Encounter Details Date Type Department Care Team (Latest Contact Info) Description 05/23/2015 8:56 EDT - 05/23/2015 13:45 EDT Hospital Encounter [facility] Perioperative Services - [address] [phone] Claus Ledbetter MD [address] [place] [id number] Inguinal hernia without mention of obstruction or gangrene, unilateral or unspecified, (not specified as recurrent) (Primary Dx) Discharge Disposition: Home or Self [...] Sign Reading Time Taken Comments Blood Pressure 119/71 05/23/2015 1330 EDT Pulse - - Temperature 36 ??C (96.8 ??F) 05/23/2015 1330 EDT Respiratory Rate 14 05/23/2015 1330 EDT Oxygen Saturation 95% 05/23/2015 1330 EDT Inhaled Oxygen Concentration - - Weight 88.5 kg (195 lb) 05/16/2015 1008 EDT Height 188 cm (6' 2) 05/16/2015 1008 EDT Body Mass Index 25.04 05/16/2015 1008 EDT documented in this encounter Mental Status * Because of a physical, mental, or emotional condition, do you have serious difficulty concentrating, remembering, or making decisions? (5 years old or older) Answer Entry Date Author Yes 11/26/2012 21:58 Lydia Escobar documented in this encounter Discharge Instructions * Discharge Instr - Activity* Claus Ledbetter - 05/23/2015 13:05 EDT DISCHARGE INSTRUCTIONS: Your surgeon is Dr. Claus Ledbetter. He can be reached by telephone at [phone]. His office address is [address] [place] [address]. Wound Care: Your dressings should remain in place and you should keep the wound dry for 48 hours after your surgery. You may then remove the dressing(s) and take a shower but you should not submerge the wound(s)under water ie. No swimming or sitting in tubs of water. If there are steristrips in place (small white butterfly tapes crossing the wound) leave them on for a week. They will usually remain in place even if you get them wet in the shower as long as you dab them dry instead of rubbing them. It isnormal to feel a ridge under the incision - so don't be alarmed. Bruising around the wound is also common. You may apply an ice pack to the wound (except wounds that are left open) for soreness. Apply the ice directly to the skin or over a thin cloth for 20 minutes every 4 hours as needed. You should contact Dr. Ledbetter if your wound becomes increasingly red or increasingly painful or if starts todrain pus or blood. Diet: Drink plenty of fluids and eat easily digested, light foods for the first couple of days after yoursurgery or discharge unless you have already resumed a normal diet while in hospital. Nausea is a common side effect of narcotic pain killers especially when those medications are taken on an empty stomach so take them with food. If you are vomiting and unable to maintain adequate fluid intake to avoid dehydration, contact Dr. Ledbetter. Medications: You should resume all your usual medications. You are being prescribed Percocet, a narcotic pain killer. This may cause nausea and constipation. To combat the nausea, take them with food. To combat the constipation, you are also being prescribeddocusate - a stool softener. If you are unable to have a bowel movement after a couple of days, take some prune juice, milk of magnesia, or other gentle laxative in addition to the docusate and give them a day to work. If your pain is inadequately controlled by the narcotic, you can also take Ibuprofen (ie. Motrin or Advil) as directed on the bottle. If /when the narcotics are too strong, you mayswitch to Ibuprofen alone or plain Tylenol alone. Activity: You should get plenty of rest after your surgery to help with recovery but do not remain in bed evelin because this is bad for your lungs and slows recovery. Light Activity. No lifting more than 10 pounds. No heavy pushing or pulling. You may resume brisk walking after 1 week(s), jogging on flat dry surfaces after 2 weeks, and regular activities after 6 weeks. You can discuss these details further with Dr. Ledbetter at your follow-up visit. Follow-Up: Your follow-up with Dr. Ledbetter is on 05/30 at 4:30. You should call Dr. Ledbetter before your scheduled follow up if: ?? You develop fever >38.5 degrees C, ?? Experience recurrent vomiting, ?? Have increasing wound or abdominal pain not controlled by the medications ?? Other troubling symptoms not explained above. documented in this encounter Medications at Time of Discharge acetaminophen (TYLENOL) 650 mg tablet Take 1 Tab by mouth every 4 hours. 11/29/2012 docusate sodium (COLACE) 100 mg capsule Take 1 Cap by mouth 2 times daily 60 Cap 0 05/23/2015 oxyCODONE-acetami nophen (PERCOCET) 5-325 mg per tablet Take 1 Tab by mouth every 4 hours as needed for Pain Daily Max: 6 Tabs 30 Tab 0 05/23/2015 VITAMIN B COMPLEX (B COMPLEX ORAL) Take by mouth documented as of this encounter Ordered Prescriptions Prescription Sig Dispense Quantity Refills Last Filled Start Date End Date docusate sodium (COLACE) 100 mg capsule Take 1 Cap by mouth 2 times daily 60 Cap 0 05/23/2015 oxyCODONE-acetamino phen (PERCOCET) 5-325 mg per tablet Take 1 Tab by mouth every 4 hours as needed for Pain Daily Max: 6 Tabs 30 Tab 0 05/23/2015 documented in this encounter Discharge Disposition Disposition Code Departure Means Destination Home or Self Care documented in this encounter Progress Notes * Geri Reyes RN - 05/23/2015 1258 EDT Pt admitted to PACU ,pt has all of his belongings in pacu::gone over discharge instructions with pt:;given copy::pt tolerating water:pt meets PASS::ready for discharge to home :pt sitting up and getting dressed::[place] from anesthesia to write a sign out note * Letha Agustin RN - 05/16/2015 1024 EDT Yunior Fernandez has been instructed as follows regarding medication administration for the day of thescheduled procedure. Date of Surgery: 05/23/2015 Instructions for Taking Medications Day of Surgery Medication Sig Last Dose Hold DOS Take DOS acetaminophen (TYLENOL) 650 mg tablet Take 1 Tab by mouth every 4 hours. yes VITAMIN B COMPLEX (B COMPLEX ORAL) Take by mouth 05/16/2015 No nsaids for 7 days prior to surgery documented in this encounter H&P Notes * Claus Ledbetter - 05/23/2015 1112 EDT The preoperative history and physical which was performed within 30 days of this procedure has been reviewed and the clinically appropriate elements of the physical examination have been repeated. There are no changes to the documented history and physical or if so such changes are documented below CLAUS LEDBETTER MD 05/23/2015 11:12 Source Note - BATTERY MECHANIC, SCAN 2 - 05/16/2015 10:48 EDT documented in this encounter OR Notes * OR Surgeon - Claus Ledbetter - 05/24/2015 0126 EDT OPERATIVE REPORT SERVICE DATE: 05/23/2015 SURGEON: Claus Ledbetter MD MANAGER FIBER: Vicky Ledbetter MD PREOPERATIVE DIAGNOSIS: Right inguinal hernia. POSTOPERATIVE DIAGNOSIS: Right inguinal hernia. PROCEDURE: Mesh and plug repair of right inguinal hernia. ANESTHESIA: Local and regional anesthesia with IV sedation and monitored anesthesia care. INDICATIONS: This 50-year-old man noticed a bulge in the groin about a month ago which is uncomfortable but not painful. He has no obstructive symptoms of his bowel. FINDINGS: There was an indirect right inguinal hernia. The floor was solid. NARRATIVE: The patient was placed on the table in the supine position. He was given 2 g of Ancef preoperatively. Venodynes were placed and activated. The right inguinal region was shaved, prepped anddraped in the usual fashion. The proposed line of incision was marked, then infiltrated with local anesthetic. A regional block was done on the anterior abdominal wall just medial to the ASIS. The skin was incised sharply with a #10 blade. The subcutaneous tissues were divided with electrocautery except for the vessels, which were divided between hemostats and ligated with 3-0 Vicryl. The fascia of the external oblique was exposed and the subfascial plane infiltrated with local anesthetic. The fascia was then opened from the internal to the external ring. The cord was encircled with a Penrosedrain to facilitate exposure. The ilioinguinal nerve was in 2 branches. These were identified and preserved throughout the case. The cord was opened and inspected. A hernia sac was from thesurrounding structures. It was mobilized to its origin at the internal ring where it was clamped, di vided and discarded. The neck was suture ligated with 2-0 Vicryl. A Qeexo PerFix small light plug was soaked in bacitracin solution and inserted through the internal ring to lay beside the cord below the floor. I then narrowed the internal ring with an interrupted 0 Prolene suture placed on either side of the ring between the conjoined tendon above and the iliopubic tract below. These were passed through the outer surface of the plug to prevent it from migrating out of position. A Prolene light mesh was then cut to the correct size and shape and laid over the floor of the inguinal canal with the tails overlapping lateral to the cord and the nerves. This was stapled to the floor with the Cytori TherapeuticsTack stapler. The wound was irrigated with bacitracin solution. The fascia of the external oblique was then closed with a running 2-0 Vicryl stitch. The subfascial plane and skin edges were reinfiltrated with local anesthetic. Florinda's fascia was closed with a running 3-0 Vicryl stitch. The skin was closed with a running 3-0 Prolene subcuticular stitch and Steri-Strips. Sterile dressings were applied. The patient tolerated the procedure well. He was transferred to the PACU in good condition. COMPLICATIONS: None. SPONGE AND NEEDLE COUNT: Correct. TISSUES AND CULTURES SENT: None. DRAINS AND FOREIGN MATERIALS: Bard PerFix small light plug and Prolene mesh in right groin. ESTIMATED BLOOD LOSS: Nil. URINE OUTPUT: N/A. FLUIDS ADMINISTERED: 600 mL of Ringer's lactate. Unless otherwise noted, there were no complications, no blood loss, no cultures obtained, no specimens removed, and no drains retained. Claus Ledbetter MD 12 41 PM / Claus Ledbetter MD kn Confirmation: [id number] Dictation ID: [id number] cc:Tony Bose MD documented in this encounter Miscellaneous Notes * Anesthesia Post-Eval - Ivan Olivas MD - 05/23/20152013 EDT Post Anesthesia Evaluation Note Date of Service: 05/23/2015 Yunior Fernandez, a 50 y.o. year old male has received MAC today. He has been evaluated, assessed and discharged from anesthesia care with stable cardiorespiratory function and alert mental status. The last set of recorded vital signs and pain rating were reviewed: ,Numeric Pain Level (Scale 1-10): 0 Yunior Fernandez participated in this evaluation unless otherwise noted. His pain, nausea and vomitinghave been managed and his body temperature and fluid balance have been restored. Additional monitoring and assessment needs have been addressed. If present, any postoperative events are documented below. Ivan Olivas MD 05/23/2015 20:14 * Brief Op Note - Claus Ledbetter - 05/23/2015 1307 EDT BRIEF OP NOTE Surgeon: Claus Ledbetter MD Student Dean: Vicky Ledbetter MD Pre-op diagnosis: Right inguinal hernia Post-op diagnosis:Right inguinal hernia Procedure:Right inguinal hernia repair Anesth: IV sedation with regional and local anesthetic infiltration Findings: Indirect right inguinal hernia EBL: nil IVF: 600 cc RL UOP: na Specimen: none Cultures: none Foreign Material Retained: Bard small Perfix light plug and mesh Complications: none Dispo: To PACU in good condition. documented in this encounter Plan of Treatment Not on file documented as of this encounter Procedures Procedure Name Priority Date/Time Associated Diagnosis Comments IMPLANT RECORD - SCANNED 05/28/2015 14:02 EDT ECG REPORT - SCANNED 05/28/2015 14:02 EDT ECG REPORT - SCANNED 05/16/2015 10:48 EDT ECG REPORT - SCANNED 05/15/2015 16:39 EDT documented in this encounter Results * IMPLANT RECORD - SCANNED (05/28/2015 14:02 EDT) 05/28/2015 14:0 2 EDT us Scan 2 Beaming Machine Operator PROCEDURE/MINOR SURGICAL OR DERABLES Final Result * ECG REPORT - SCANNED (05/28/2015 14:02 EDT) 05/28/2015 14:0 2 EDT us Scan 2 Beaming Machine Operator PROCEDURE/MINOR SURGICAL OR DERABLES Final Result * ECG REPORT - SCANNED (05/16/2015 10:48 EDT) 05/16/2015 10:4 8 EDT us Scan 2 Beaming Machine Operator PROCEDURE/MINOR SURGICAL OR DERABLES Final Result * ECG REPORT - SCANNED (05/15/2015 16:39 EDT) 05/15/2015 16:3 9 EDT us Scan 2 Beaming Machine Operator PROCEDURE/MINOR SURGICAL OR DERABLES Final Result documented in this encounter Visit Diagnoses Diagnosis Inguinal hernia without mention of obstruction or gangrene, unilateral or unspecified, (not specified as recurrent) Inguinal hernia without mention of obstruction or gangrene, unilateral or unspecified, (not specified as recurrent) documented in this encounter Administered Medications Inactive Administered Medications - up to 3 most recent administrations Medication Order MAR Action Action Date Dose Rate Site ceFAZolin (ANCEF) syringe 2 g 2 g, intravenous, Administer over 10 Minutes, PRE-OP ONCE, 1 dose, On Nikki 05/23/15 at 0945, Routine, Pre-Op DOS Rx Approved Given by Other 05/23/2015 11:27 EDT 2 g lactated ringers (LR) infusion 30 mL/hr, intravenous, CONTINUOUS, Starting on Nikki 05/23/15 at 0945, Until Nikki 05/23/15 at 1551, Routine, Pre-Op DOS Rx Approved New Bag 05/23/2015 9:27 EDT 30 mL/hr 30 mL/hr documented in this encounter Discontinued Medications Medication Sig Discontinue Reason Start Date End Da te Multivitamins with Minerals Tab Take 1 Tab by mouth daily. Therapy completed 05/16/2015 documented as of this encounter Historical Medications * This list may reflect changes made after this encounter. VITAMIN B COMPLEX (B COMPLEX ORAL) Take by mouth added in this encounter Active and Recently Administered Medications Times are shown in EDT. Scheduled Medication Order 05/21/2015 05/22/2015 05/23/2015 ceFAZolin (ANCEF) syringe 2 g (COMPLETED) 2 g, intravenous, Administer over 10 Minutes, PRE-OP ONCE, 1 dose, On Nikki 05/23/15 at 0945, Routine, Pre-Op DOS Rx Approved 1127 (Given by Other - Provider: Eileen Plolard RN - Comment: Given by Rocio Rojas in [place] Continuous Medication Order 05/21/2015 05/22/2015 05/23/2015 lactated ringers (LR) infusion (CANCELED) 30 mL/hr, intravenous, CONTINUOUS, Starting on Nikki 05/23/15 at 0945, Until Nikki 05/23/15 at 1551, Routine, Pre-Op DOS Rx Approved 09 (New Bag - Prov ider: Carol Zamudio RN)1245 (Completed - Provider: Geri Reyes RN) documented in this encounter Orders Medications Ordered That Jb ht Not Have Been Administered Count Last Ordered Date First Ordered Date acetaminophen (TYLENOL) solu tion unit dose cup 325 mg 1 05/23/2015 acetaminophen (TYLENOL) tablet 1,000 mg 1 0 05/23/2015 atropine 0.1 mg/mL syringe 0.5 mg 1 015 diphenhydrAMINE (BENADRYL) i njection 6.25 mg 1 05/23/2015 fentaNYL citrate (PF) 50 mcg /mL injection 25-100 mcg 1 05/23/2015 HYDROmorphone (PF) (DILAUDID ) 1 mg/mL injection 0.2-1 mg 1 05/23/2015 ketOROLAC (TORADOL) injection 30 mg 1 05/23 lactated ringers (LR) infusion 1 05/23/2015 meperidine (PF) (DEMEROL) 25 mg/0.5 mL injection 12.5 mg 1 05/23/2015 nalOXone (NARCAN) injection 0.2 mg 1 2014 ondansetron (PF) (ZOFRAN) injection 2 mg 1 05/23/2015 oxyCODONE (ROXICODONE) immed iate release tablet 5 mg 1 05/23/2015 Nursing Count Last Ordered Date First Orde red Date PLACE SEQUENTIAL COMPRESSION DEVICE 1 05/23 Admission Count Last Ordered Date First Orde red Date STATUS: OUTPATIENT SURGICAL OP BED/SERVICES 1 05/23/2015 Transfer Count Last Ordered Date First Orde red Date NOTIFY PPS PACU PATIENT DISCHARGE 1 015 Discharge Count Last Ordered Date First Orde red Date DISCHARGE PATIENT 1 05/23/2015 documented in this encounter Care Teams Roll Or Tape Edge Machine Operator Relationship Specialty Start Date End Date Tony Bose MD [address] [place] [address] PCP - General 11/26/12 documented as of this encounter
--- OUTSIDE RECORDS SUMMARY | 2024-11-10 01:29 | XMS_ITS | Encounter Summary ---
Author Organization [facility] Address [address] [place] [address] Care Team Providers Care Family Partner Name Role Phone Tony Bose MD Primary Care Provid er Reason for Referral * Radiology Services (Routine/Next Available) - Closed Specialty Diagnoses / Procedures Referred By Contac t Referred To Contact Diagnoses Closed fracture of lumbar vertebra without mention of spinal cord injury Procedures L SPINE 1 VIEW Ena Johnston MD Phone: tel: fax: Referral ID Status Reason Start Date Expiration Date Visits Re quested Visits Authorized [id number] Closed 12/12/2012 1 1 Reason for Visit * Reason Onset Date Comments Appointment Related 12/12/2012 Encounter Details Date Type Department Care Team (Late st Contact Info) Description 12/12/2012 Orders Only [facility] Spine Program - [address] [address] Ena Johnston MD [address] [place] [address] [place] [address] Closed fracture of lumbar vertebra without mention of spinal cord injury (Primary Dx) Social History Tobacco Use Types Packs/Day Years [...] Procedure Name Priority Date/Time Associated Diagnosis Comments L SPINE 1 VIEW Routine 12/13/2012 15:24 EST Closed fracture of lumbar vertebra without mention of spinal cord injury documented in this encounter Results * L SPINE 1 VIEW (12/13/2012 15:24 EST) Anatomical Region Laterality Modality Other 12/13/2012 15:2 4 EST 12/15/2012 13:21 EST Narrative 12/15/2012 13:21 EST L Spine 1 View ??Dec 13, 2012 03:24:00 PM Signs and Symptoms/Comments: ??805.4-Closed fracture of lumbar vertebra without mention of spinal cord [id number]; LBP/2 column L1 burst fracture. Findings: ??Two views of the thoracolumbar spine demonstrate no significant change in the degree of the compression of the L1 vertebra as compared to comparison radiographs from November 29, 2012. Some progressive sclerosis is identified, indicative of interval healing. Multiple endplate irregularities within the visualized portion of the thoracic spine are again identified, with decrease in height of T7, T8, T9 and T11, similar as on the prior examination. Disc space narrowing is again identified at multiple levels, most pronounced at the L4-L5 and L1-L2 levels. Obliteration of the posterior costophrenic angle on the right is again identified with associated subpleural atelectasis. Consider chest radiograph. Procedure Note 12/15/2012 L Spine 1 View Dec 13, 2012 03:24:00 PM Signs and Symptoms/Comments: 805.4-Closed fracture of lumbar vertebra without mention of spinal cord [id number]; LBP/2 column L1 burst fracture. Findings: Two views of the thoracolumbar spine demonstrate no significant change in the degree of the compression of the L1 vertebra as compared to comparison radiographs from November 29, 2012. Some progressive sclerosis is identified, indicative of interval healing. Multiple endplate irregularities within the visualized portion of the thoracic spine are again identified, with decrease in height of T7, T8, T9 and T11, similar as on the prior examination. Disc space narrowing is again identified at multiple levels, most pronounced at the L4-L5 and L1-L2 levels. Obliteration of the posterior costophrenic angle on the right is again identified with associated subpleural atelectasis. Consider chest radiograph. Ena Johnston MD IMG DIAGNOSTIC IMAGING ORDERABLES Final Result documented in this encounter Visit Diagnoses Diagnosis Closed fracture of lumbar vertebra without mention of spinal cord injury- Primary documented in this encounter Care Teams Family Partner Relationship Specialty Start Date End Date Tony Bose MD [address] [place] [address] PCP - General 11/26/12 documented as of this encounter
--- OUTSIDE RECORDS SUMMARY | 2024-11-10 01:29 | XMS_ITS | Encounter Summary ---
Author Organization [facility] Address [address] [place] [address] Care Team Providers Care Health Program Manager Name Role Phone Tony Bose MD Primary Care Provid er Encounter Details Date Type Department Care Team (Late st Contact Info) Description 10/25/2024 Lab Requisition [facility] Pathology & Laboratory Medicine - [facility] [address] [place] [address] Outr Resulting Lab, Provider Social History Tobacco [...] Procedure Name Priority Date/Time Associated Diagnosis Comments HIV 1/2 ANTIGEN AND ANTIBODY, 4TH GENERATION Routine 10/25/2024 6:39 EST documented in this encounter Results * HIV 1/2 ANTIGEN AND ANTIBODY, 4TH GENERATION (10/25/2024 6:39 EST) HIV 1 and 2 Antibody/p24 Antigen, 4th Generation Negative Negative 10/25/2024 20:52 EST [facility] Comment:If acute HIV-1 infec tion is suspected in a high risk patient, submit plasma specimen for HIV-1 RNA quantitation test. Blood VENOUS BLOOD / Unknown 10/25/2024 6:39 EST 10/25/2024 17:38 EST Narrative [facility] - 10/25/2024 20:52 EST Fourth Generation assay performed on the Siemens Centaur XPT. us Provider Outr Resulting Lab IMMUNOLOGY AND SEROL OGY ORDERABLES Final Result [facility] [address] [place], [place] [address] documented in this encounter Visit Diagnoses Not on filedocumented in this encounter Care Teams Health Program Manager Relationship Specialty Start Date End Date Tony Bose MD [address] [place] [address] PCP - General 11/26/12 documented as of this encounter
--- OUTSIDE RECORDS SUMMARY | 2024-11-10 01:29 | XMS_ITS | Encounter Summary ---
Author Organization [facility] Address [address] [place] [address] Care Team Providers Care Platform Builder Name Role Phone Tony Bose MD Primary Care Provid er Reason for Visit * Reason Onset Date Comments Advice Only 06/14/2013 Encounter Details Date Type Department Care Team (Late st Contact Info) Description 06/14/2013 Telephone [facility] Spine Program - [address] [place] [address] Crystal Wesley MD [address] [facility] [place] [address] Advice Only Social History Tobacco Use Types Packs/Day Years [...] Telephone Encounter - Arturo Byrd Jr. - 06/14/2013 1226 EDT Pt called to say he has an appointment tomorrow for the facet injections, but is feeling much better. He said his pain level is below a '4', and she said that was the threshold I had to have for theinjections. He asked if he can cancel his appointment for tomorrow and just keep that on hold to be used PRN? documented in this encounter Plan of Treatment Not on file documented as of this encounter Visit Diagnoses Not on filedocumented in this encounter Care Teams Platform Builder Relationship Specialty Start Date End Date Tony Bose MD [address] [place] [id number] PCP - General 11/26/12 documented as of this encounter
--- OUTSIDE RECORDS SUMMARY | 2024-11-10 01:29 | XMS_ITS | Encounter Summary ---
Author Organization [facility] Address [address] [place] [address] Care Team Providers Care Occasional Babysitter Name Role Phone Tony Bose MD Primary Care Provid er Encounter Details Date Type Department Care Team (Late st Contact Info) Description 10/25/2024 Lab Requisition [facility] Pathology & Laboratory Medicine - [facility] [address] [place] [address] Outr Resulting Lab, Provider Social History Tobacco [...] Procedure Name Priority Date/Time Associated Diagnosis Comments CHLAMYDIA/N. GONORRHOEAE AMPLIFIED NUCLEIC ACID Routine 10/25/2024 7:00 EST documented in this encounter Results * CHLAMYDIA/N. GONORRHOEAE AMPLIFIED NUCLEIC ACID (10/25/2024 7:00 EST) Neisseria gonorrhoeae Result Negative Negative 10/26/2024 12:46 EST [facility] Chlamydia trachomatis Result Negative Negative 10/26/2024 12:46 EST [facility] Urine URINE / Unknown 10/25/2024 7 :00 EST 10/25/2024 18:29 EST us Provider Outr Resulting Lab MICROBIOLOGY - GENER AL ORDERABLES Final Result [facility] [address] [place] [address] documented in this encounter Visit Diagnoses Not on filedocumented in this encounter Care Teams Occasional Babysitter Relationship Specialty Start Date End Date Tony Bose MD [address] [place] [id number] PCP - General 11/26/12 documented as of this encounter
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
--- OUTSIDE RECORDS SUMMARY | 2024-11-10 01:29 | XMS_ITS | Encounter Summary ---
Author Organization [facility] Address [address] [place] [address] Care Team Providers Care Boiler Maker Name Role Phone Tony Bose MD Primary Care Provid er Reason for Referral * Radiology Services (Routine/Next Available) - Closed Specialty Diagnoses / Procedures Referred By Contac t Referred To Contact Diagnoses Shoulder pain Procedures SHOULDER 2 OR MORE VIEWS Ena Johnston MD Phone: tel: fax: Referral ID Status Reason Start Date Expiration Date Visits Re quested Visits Authorized [id number] Closed 01/04/2013 1 1 Reason for Visit * Reason Onset Date Comments Appointment Related 01/04/2013 Encounter Details Date Type Department Care Team (Late st Contact Info) Description 01/04/2013 Orders Only [facility] Spine Program - [address] [place] [address] Ena Johnston MD [address] [place] [address] [place] [address] LBP (low back pain) (Primary Dx); Shoulder pain Social History Tobacco Use Types Packs/Day Years [...] Procedure Name Priority Date/Time Associated Diagnosis Comments THORACOLUMBAR SPINE 1 VIEW 01/10/2013 14:37 EST SHOULDER 2 OR MORE VIEWS Routine 01/10/2013 14:37 EST Shoulder pain documented in this encounter Results * THORACOLUMBAR SPINE 1 VIEW (01/10/2013 14:37 EST) Anatomical Region Laterality Modality Other 01/10/2013 14:3 7 EST 01/16/2013 15:21 EDT Narrative 01/16/2013 15:21 EDT THORACOLUMBAR SPINE 1 VIEW ??Jan 10, 2013 02:37:00 PM Clinical history/Comments: 724.8-Aredfpq-MCX-9-CM; LBP/Left transverse process fractures of T3 to T9./T9 anterior superior endplate compression fracture/ L1 two-column burst fractur Comparison: 12/13/2012 Findings: A single lateral view of the thoracolumbar spine demonstrates no significant interval change in the appearance of the L1 vertebral body. Endplate changes are also stable. There is disc space narrowing at L1-L2 and L4-L5 as before. No new abnormality is seen. Procedure Note 01/16/2013 THORACOLUMBAR SPINE 1 VIEW Jan 10, 2013 02:37:00 PM Clinical history/Comments: 724.9-Qhuajfm-EKD-9-CM; LBP/Left transverse process fractures of T3 to T9./T9 anterior superior endplate compression fracture/ L1 two-column burst fractur Comparison: 12/13/2012 Findings: A single lateral view of the thoracolumbar spine demonstrates no significant interval change in the appearance of the L1 vertebral body. Endplate changes are also stable. There is disc space narrowing at L1-L2 and L4-L5 as before. No new abnormality is seen. us Ena Karen Selden MD IMG DIAGNOSTIC IMAGING ORDERABLES Final Result * SHOULDER 2 OR MORE VIEWS (01/10/2013 14:37 EST) Anatomical Region Laterality Modality Other 01/10/2013 14:3 7 EST 01/11/2013 16:52 EST Narrative 01/11/2013 16:52 EST SHOULDER 2 OR MORE VIEW ??Jan 10, 2013 02:37:00 PM Signs and Symptoms/Comments: ??719.41-Pain in joint, shoulder [id number]-3-CM; shoulder pain/left scapular body fracture, minimally displaced Comparison: Chest x-ray 11/27/[address] 11/26/2012. Findings: Two views of the left shoulder demonstrate a small amount of callus formation without change in alignment of the minimally displaced fracture of the scapular body at the base of the scapular spine. The glenohumeral joint appears well aligned. The visualized portion of the left lung is clear. Procedure Note 01/11/2013 SHOULDER 2 OR MORE VIEW Jan 10, 2013 02:37:00 PM Signs and Symptoms/Comments: 719.41-Pain in joint, shoulder kozyfj-VYQ-1-CM; shoulder pain/left scapular body fracture, minimally displaced Comparison: Chest x-ray 11/27/[address] 11/26/2012. Findings: Two views of the left shoulder demonstrate a small amount of callus formation without change in alignment of the minimally displaced fracture of the scapular body at the base of the scapular spine. The glenohumeral joint appears well aligned. The visualized portion of the left lung is clear. Ena [facility] ORDERABLES Final Result documented in this encounter Visit Diagnoses Diagnosis LBP (low back pain)- Primary Lumbago Shoulder pain Pain in joint, shoulder region documented in this encounter Care Teams Boiler Maker Relationship Specialty Start Date End Date Tony Bose MD [address] [place] [address] PCP - General 11/26/12 documented as of this encounter
--- OUTSIDE RECORDS SUMMARY | 2024-11-10 01:29 | XMS_ITS | Encounter Summary ---
Author Organization [facility] Address [address] [place] [address] Care Team Providers Care Music Intern Name Role Phone Tony Bose MD Primary Care Provid er Reason for Referral * Radiology Services (Routine/Next Available) - Closed Specialty Diagnoses / Procedures Referred By Contac t Referred To Contact Diagnoses Closed fracture of dorsal (thoracic) vertebra without mention of spinal cord injury Procedures THORACIC SPINE 1 VIEW Ena Johnston MD Phone: tel: fax: Referral ID Status Reason Start Date Expiration Date Visits Re quested Visits Authorized [id number] Closed 02/20/2013 1 1 * Radiology Services (Routine/Next Available) - Closed Specialty Diagnoses / Procedures Referred By Contac t Referred To Contact Diagnoses Closed fracture of lumbar vertebra without mention of spinal cord injury Procedures L SPINE 1 VIEW Ena Johnston MD Phone: tel: fax: Referral ID Status Reason Start Date Expiration Date Visits Re quested Visits Authorized [id number] Closed 02/20/2013 1 1 Reason for Visit * Reason Onset Date Comments Appointment Related 02/20/2013 Encounter Details Date Type Department Care Team (Late st Contact Info) Description 02/20/2013 Orders Only [facility] Spine Program - [address] [place] [address] Ena Johnston MD [address] [facility] [place] [address] Closed fracture of lumbar vertebra without mention of spinal cord injury (Primary Dx); Closed fracture of dorsal (thoracic) vertebra without [...] Diagnosis Comments THORACIC SPINE 1 VIEW Routine 02/22/2013 8:57 EDT Closed fracture of dorsal (thoracic) vertebra without mention of spinal cord injury L SPINE 1 VIEW Routine 02/22/2013 8:57 EDT Closed fracture of lumbar vertebra without mention of spinal cord injury documented in this encounter Results * THORACIC SPINE 1 VIEW (02/22/2013 8:57 EDT) Anatomical Region Laterality Modality Other 02/22/2013 8:57 EDT 02/23/2013 10:54 EDT Narrative 02/23/2013 10:54 EDT THORACIC SPINE 1 VIEW ??Feb 22, 2013 08:57:00 AM LUMBAR SPINE ONE VIEW Clinical History/Comments: 805.2-Closed fracture of dorsal (thoracic) vertebra without mention of spinal cord [id number]-MNE-4-CM; LBP/ Left transverse process fractures of T3 to T9. A T9 anterior superior endplate compression fracture Comparisons: 01/10/2013 and 11/29/2012. Findings thoracic spine: Again noted are multiple Schmorl's nodes throughout the thoracic and upper lumbar spine. I do not see significant interval change in the appearance of compression deformities of T6, T7, T8, T9 and T11. Alignment is normal. It there is kyphosis. Findings lumbar spine: A single view of the lumbar spine is received for interpretation demonstrating no interval change in the appearance of the L1 or L2 vertebral bodies. Alignment is normal. Multilevel degenerative disc disease and osteophytic changes are present; most severe at the L4-L5 level. Procedure Note 02/23/2013 THORACIC SPINE 1 VIEW Feb 22, 2013 08:57:00 AM LUMBAR SPINE ONE VIEW Clinical History/Comments: 805.2-Closed fracture of dorsal (thoracic) vertebra without mention of spinal cord [id number]-[id number]; LBP/ Left transverse process fractures of T3 to T9. A T9 anterior superior endplate compression fracture Comparisons: 01/10/2013 and 11/29/2012. Findings thoracic spine: Again noted are multiple Schmorl's nodes throughout the thoracic and upper lumbar spine. I do not see significant interval change in the appearance of compression deformities of T6, T7, T8, T9 and T11. Alignment is normal. It there is kyphosis. Findings lumbar spine: A single view of the lumbar spine is received for interpretation demonstrating no interval change in the appearance of the L1 or L2 vertebral bodies. Alignment is normal. Multilevel degenerative disc disease and osteophytic changes are present; most severe at the L4-L5 level. Ena Johnston MD IMG DIAGNOSTIC IMAGING ORDERABLES Final Result * L SPINE 1 VIEW (02/22/2013 8:57 EDT) Anatomical Region Laterality Modality Other 02/22/2013 8:57 EDT 02/23/2013 10:54 EDT Narrative 02/23/2013 10:54 EDT THORACIC SPINE 1 VIEW ??Feb 22, 2013 08:57:00 AM LUMBAR SPINE ONE VIEW Clinical History/Comments: 805.2-Closed fracture of dorsal (thoracic) vertebra without mention of spinal cord [id number]; LBP/ Left transverse process fractures of T3 to T9. A T9 anterior superior endplate compression fracture Comparisons: 01/10/2013 and 11/29/2012. Findings thoracic spine: Again noted are multiple Schmorl's nodes throughout the thoracic and upper lumbar spine. I do not see significant interval change in the appearance of compression deformities of T6, T7, T8, T9 and T11. Alignment is normal. It there is kyphosis. Findings lumbar spine: A single view of the lumbar spine is received for interpretation demonstrating no interval change in the appearance of the L1 or L2 vertebral bodies. Alignment is normal. Multilevel degenerative disc disease and osteophytic changes are present; most severe at the L4-L5 level. Procedure Note 02/23/2013 THORACIC SPINE 1 VIEW Feb 22, 2013 08:57:00 AM LUMBAR SPINE ONE VIEW Clinical History/Comments: 805.2-Closed fracture of dorsal (thoracic) vertebra without mention of spinal cord [id number]-[id number]-CM; LBP/ Left transverse process fractures of T3 to T9. A T9 anterior superior endplate compression fracture Comparisons: 01/10/2013 and 11/29/2012. Findings thoracic spine: Again noted are multiple Schmorl's nodes throughout the thoracic and upper lumbar spine. I do not see significant interval change in the appearance of compression deformities of T6, T7, T8, T9 and T11. Alignment is normal. It there is kyphosis. Findings lumbar spine: A single view of the lumbar spine is received for interpretation demonstrating no interval change in the appearance of the L1 or L2 vertebral bodies. Alignment is normal. Multilevel degenerative disc disease and osteophytic changes are present; most severe at the L4-L5 level. Result [facility] Ena Johnston MD [facility] DIAGNOSTIC IMAGING ORDERABLES Final Result documented in this encounter Visit Diagnoses Diagnosis Closed fracture of lumbar vertebra without mention of spinal cord injury- Primary Closed fracture of dorsal (thoracic) vertebra without mention of spinal cord injury documented in this encounter Care Teams Music Intern Relationship Specialty Start Date End Date Tony Bose MD [address] [place] [id number] PCP - General 11/26/12 documented as of this encounter
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
--- OUTSIDE RECORDS SUMMARY | 2024-11-10 01:29 | XMS_ITS | Encounter Summary ---
Author Organization [facility] Address [address] [place] [address] Care Team Providers Care Veterinary Toxicologist Name Role Phone Tony Bose MD Primary Care Provid er Encounter Details Date Type Department Care Team (Late st Contact Info) Description 05/29/2020 Lab Requisition [facility] Pathology & Laboratory Medicine - [facility] [address] [place] [address] Hussain Pak MD [address] [place] [address] [place] [id number] Basal cell carcinoma of skin of other parts of face Social History Tobacco Use Types Packs/Day Years [...] Date/Time Associated Diagnosis Comments SURGICAL PATHOLOGY Today 05/29/2020 8:41 EDT Basal cell carcinoma of skin of other parts of face documented in this encounter Results * SURGICAL PATHOLOGY (05/29/2020 8:41 EDT) Final Diagnosis A. SKIN OF CHEEK, LEFT SUPERIOR CENTRAL MALAR, EXCISION: - Basal cell carcinoma, residual, completely excised. - Intradermal nevus, incidental. 05/31/2020 9:56 [facility] at 0956 Attestation By the signature below, the attending physician certifies that they have 1) personally conducted a gross and/or microscopic examination of the described specimen(s), and/or personally interpreted the results of laboratory testing of the described specimen(s), and 2) personally rendered or confirmed the above diagnosis. 05/31/2020 9:56 [facility] at 0956 Clinical History Appropriate healing biopsy site with residual carcinoma noted.; bnodular basal cell carcinoma; please check margins, suture superior 05/31/2020 9:56 [facility] Gross Description Received in formalin labelled with proper patient identification (initials M, S) and A. Left superior central malar is an ellipse of light cutler skin received oriented with a suture at superior as per the Surgical pathology requisition. The specimen measures 2.8 cm superior to inferior by 1.5 cm anterior to posterior and is excised to a depth of 0.5 cm. There is an off center slightly depressed white pinpoint cutler area that measures 0.4 x 0.3 cm The surgical margin of the posterior half is inked blue and the anterior half is inked black. The specimen is sectioned from superior (level 1) to inferior (level 12 ) and entirely submitted as follows: BLOCK CASILLAS: A1- level 1, superior tip, reverse A2-A6- levels 2-11 A7- level 12, inferior tip, reverse enfanajma Ley 05/30/2020 9:42 05/31/2020 9:56 [facility] Scanned Images 05/31/2020 9:56 [facility] Tissue TISSUE SPECIMEN FROM SKIN / Unknown 05/29/2020 8:41 EDT 05/29/2020 19:58 EDT us Hussain Pak MD PATHOLOGY ORDERABLES Final Resu lt [facility] [address] [place] [address] documented in this encounter Visit Diagnoses Diagnosis Basal cell carcinoma of skin of other parts of face documented in this encounter Care Teams Veterinary Toxicologist Relationship Specialty Start Date End Date Tony Bose MD [address] [place] [id number] PCP - General 11/26/12 documented as of this encounter
--- OUTSIDE RECORDS SUMMARY | 2024-11-10 01:29 | XMS_ITS | Encounter Summary ---
Author Organization [facility] Address [address] [place] [address] Care Team Providers Care Head Men'S Golf Coach Name Role Phone Tony Bose MD Primary Care Provid er Reason for Visit * Reason Comments Mohs Consult nodular basal cell c arcinoma, left inferior central forehead, referred by Dr. Casanova Encounter Details Date Type Department Care Team (Late st Contact Info) Description 05/19/2016 14:15 EDT Office Visit [facility] Dermatology 5th Floor [address] [address] Nicolas Leon MD [address] [place] [address], [address] [place] [address] Basal cell carcinoma of left buddhist region (Primary Dx) Social History Tobacco Use Types [...] shopping? Answer Date of Assessment Author No 05/19/2016 14:16 EDT documented as of this encounter Mental Status * Because of a physical, mental, or emotional condition, does this person have serious difficulty concentrating, remembering, or making decisions? Answer Entry Date Author No 05/19/2016 14:16 EDT Lydia Sutton documented in this encounter Discharge Diagnoses Diagnosis C44.319 Basal cell carcinoma of skin of other parts of face-C44.319[ICD-10-CM] documented in this encounter Progress Notes * Nicolas Leon MD - 05/19/2016 1426 EDT MOHS CONSULTATION Chief Complaint Patient presents with ??? Mohs Consult nodular basal cell carcinoma, left inferior central forehead, referred by Dr. Casanova Subjective: Yunior Fernandez is a 51 y.o. year old male who is referred to me for evaluation and treatment of a basal cell carcinoma of the left buddhist and forehead by Dr. Casanova. The patient is referred to consider Mohs surgery versus other treatment options. The patient notes that this lesion has been present for about 18 months, and reports that the area was like a pimple that would not heal. . The patient???s risk factors for skin cancer include avid outdoor lifestyle and a family history of NMSC. Pacemaker/ICD: None Blood thinner: None Joints replaced/stents/valve: None Allergies (Latex/Antibiotics): None For patient's past medical history, past surgical history, medications, medication allergies, social history and family history please please refer to the patients electronic record in [facility]. Objective: Complete physical examination of the affected area in the office today revealed a 0.8 cm x 0.8 cm depressed, pink, papule located on the left buddhist. Careful examination of the draining lymph nodes revealed no suspicious adenopathy. Pathology: D-Path [id number] Nodular BCC Assessment: - basal cell carcinoma Plan: Mr. Fernandez and I discussed the meaning of the diagnosis of skin cancer and the options for treatment including curettage and electrodesiccation, radiation therapy, conventional excision, and excision by Mohs micrographic surgery. Due to the need for a high cure rate and optimum functional and aesthetic outcome, I feel that Mohs surgery is indicated. The risks of Mohs surgery and potential reconstructive surgery, including but not limited to, bleeding, scarring, infection, recurrence, injury tofunctionally or cosmetically important nerve structures and an unsatisfactory cosmetic result were reviewed. The patient was given an opportunity to ask questions, and I believe that all of his questions were answered satisfactorily. In addition the patient was provided with written material that describes the Mohs procedure and related matters. Mr. Fernandez understands that following Mohs surgery an operative repair may be required and may involve substantial suturing. We have jointly planned to have me repair the wound at the day of surgery. He understands that following reconstruction, if performed, many months may elapse before a decision can be made about the final cosmetic result, and that, in some cases a revision may be necessary to optimize the outcome. I explained to Mr. Fernandez that in addition to the risk of recurrence from his skin cancer he has an increased risk of developing additional new skin cancers elsewhere. For that reason, followup with Dr. Casanova, for ongoing skin surveillance examinations, after surgery, will be imperative. The patient has been scheduled to undergo surgery at the next available appointment. Note: none Nicolas Leon MD 05/19/2016 14:27 * Emmy Coleman - 05/19/2016 1417 EDT Review of Systems Constitutional: Negative for fever, fatigue and unexpected weight change. HENT: Negative for mouth sores. Eyes: Negative for pain. Respiratory: Negative for cough and shortness of breath. Cardiovascular: Negative for chest pain and palpitations. Gastrointestinal: Negative for nausea, vomiting, abdominal pain, diarrhea, constipation and blood in stool. Genitourinary: Negative for dysuria, frequency and hematuria. Musculoskeletal: Negative for myalgias, joint swelling, arthralgias and muscle stiffness in the morning. Skin: Negative for rash. Neurological: Negative for numbness and headaches. Endo/Heme/Allergies: Does not bruise/bleed easily. Psychiatric/Behavioral: Negative for sleep disturbance. The patient is not nervous/anxious. Emmy Coleman 05/19/2016 14:17 documented in this encounter Plan of Treatment Not on file documented as of this encounter Visit Diagnoses Diagnosis Basal cell carcinoma of left buddhist region- Primary Basal cell carcinoma of skin of other and unspecified parts of face documented in this encounter Historical Medications * This list may reflect changes made after this encounter. DOCOSAHEXANOIC ACID/EPA (FISH OIL ORAL) Take by mouth. added in this encounter Care Teams Head Men'S Golf Coach Relationship Specialty Start Date End Date Tony Bose MD [address] [place] [id number] PCP - General 11/26/12 documented as of this encounter
--- OUTSIDE RECORDS SUMMARY | 2024-11-10 01:29 | XMS_ITS | Encounter Summary ---
Author Organization [facility] Address [address] [place] [address] Care Team Providers Care Fertilizing Machine Operator Name Role Phone Tony Bose MD Primary Care Provid er Reason for Visit * Reason Comments Basal Cell Carcinoma Left central inferi or forehead Encounter Details Date Type Department Care Team (Late st Contact Info) Description 08/19/2016 7:45 EDT Office Visit [facility] Dermatology 5th Floor [address] [phone] Nicolas Leon MD [address] [facility], [address] [place] [address] Basal cell carcinoma of left yazidism region (Primary Dx); 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 You may shower or bathe after 24 hours; remove thebandage and replace it after the shower (see wound care section below for instructions on how to dothis). DISCOMFORT: Expect some discomfort. Tylenol, taken as directed by the operator engineer, will help relieve pain. If Tylenol does not provide sufficient relief, you may also take Ibuprofen alternating every four hours with the Tylenol. If the pain is severe and not relieved by the above measures, please c all the office. BLEEDING: You may notice some blood on the edges of the dressing the first day - this is NORMAL. Ifthe bleeding soaks through the dressing, remove the dressing, and apply firm, steady pressure with a moist clean wash cloth for fifteen minutes. If the bleeding stops, redress the wound, if not, callour office at . ACTIVITY: Relax and limit your physical activity for the first 48 hours after surgery. Also, if thesurgery was on the face or scalp, keep your head elevated. Your provider may ask you to limit activity for a longer period of time. APPEARANCE: There may be swelling and bruising around the wound, especially near the eyes. Some redness is normal, but the wound should not be red, hot and tender. If the wound becomes increasingly inflamed, warm, or drains pus, please call our office. WOUND CARE: ?? Wash hands with soap and water before changing the dressing. ?? Change the dressing daily and when it becomes wet. ?? Clean the wound with mild soap and warm water. ?? You may gently loosen any crusts with a cotton swab. ?? The wound may be slightly tender and may bleed a small amount. A small amount of discharge is normal. ?? Apply a thin layer of sterile petroleum jelly over the wound. ?? Cover with Telfa or similar non-stick dressing or bandage. ?? Tape in place with Hypafix or paper tape. ?? It is important to keep the wound covered for 7 days at which point the dressing may be removed and does not need to be reapplied. ?? If there are areas that are not fully healed after 7 days then the dressing should remain in place longer until the skin has healed completely. ?? If your sutures require removal, you will receive specific instructions regarding when and whereto have them removed. Dissolvable sutures generally fall out in 7 to 14 days. If there are suture remnants still present after 7 days you may pull them out with tweezers. CONTACT OUR OFFICE ( or ) IF YOU EXPERIENCE: ?? Increasing redness ?? Wound is warm or hot to touch ?? Increasing pain ?? Drainage with a foul odor ?? Rapid swelling of the wound ?? Fever or chills documented in this encounter Progress Notes * Omar Del Rio MD - 08/19/2016 0745 EDT Images from the original note were not included. MOHS OPERATIVE REPORT Patient Name: Yunior Fernandez Date of Service: August 19, 2016 Surgeon: Nicolas Leon MD I personally performed the procedure Nicolas Leon MD Chief of Dermatology [facility] Outside Sales Account Representative: Omar Del Rio MD Case #: [id number] Preoperative Diagnosis: basal cell carcinoma Preoperative Procedure: Mohs micrographic surgery Location of Lesion: left yazidism Preoperative Lesion Size: 0.8 cm x 1.0 cm Preoperative Procedure: Mohs microscopically-controlled fresh tissue excision Indications: The patient presents with a basal cell carcinoma. Because of the histologic and clinical nature of the lesion, as well as its location, the need to achieve the highest cure rate while providing maximum tissue preservation warranted tumor extirpation via microscopically-controlled excision using the Mohs fresh tissue technique. Alternate therapeutic options were discussed on several occasions prior to surgery. After informed consent was obtained and appropriate instruction was provided, the patient underwent tumor extirpation by the Mohs fresh tissue technique as follows: PROCEDURE - INITIAL STAGE: Patient position: supine Anesthesia: 1% lidocaine with epinephrine 1:100,000 local infiltration Prep: Povodine Iodine The patient was brought to the operative suite. The lesion was identified and was prepped in a sterile fashion. The area was infiltrated with lidocaine/epinephrine to achieve complete anesthesia and to augment hemostasis. An initial beveled excision was performed to the subcutis with a scalpel blade and tissue scissors as indicated. A hash was created in the specimen and within the adjacent epidermis for marking purposes. The Mohs specimen was excised in a sharp manner, and carefully placed in proper orientation on the surgical tray. Hemostasis of the operative wound was obtained with carefulspot electrocoagulation. A sterile non-adherent dressing was applied to the operative wound. The Mohs tissue specimen was carefully transferred to the lab where the tissue was divided, and color inked for orientation by me. These specimens were mapped and then handed personally to the food quality technician for frozen sectioning. The tissue was embedded so that the deep and surface margins lay in the same plane, and sections were made through this plane. Once the slide preparation was complete I personally performed histologic evaluation and interpretation of all sections. A summary of my findingsmay be found below. Stage 1 findings: Wound Depth subcutis Sections Created 2 Number of Sections Containing Tumor 0 With the patient clear of microscopic tumor, surgery was considered complete. Postoperative Wound Size: 1.2 x 1.0 cm Final Diagnosis: basal cell carcinoma Final Procedure: Mohs micrographic surgery Blood Loss: Minimal Operative Time: 30 minutes Complications: None Note: None Repair: Intermediate Closure INTERMEDIATE REPAIR PATIENT INFORMATION: Yunior Fernnadez SURGEON: Nicolas Leon MD The fellow performed the procedure Nicolas Leon MD Chief of Dermatology [facility] I was present for the yee and critical components of the operative procedure and immediately available throughout. CANDY FEEDER: Omar Del Rio MD 08/19/2016 PREOPERATIVE DIAGNOSIS: Basal cell carcinoma PREOPERATIVE PROCEDURE: Intermediate Linear Closure LOCATION of WOUND: left yazidism WOUND DIMENSIONS: 1.0 cm x 1.2 cm INDICATIONS: The patient presents with an operative wound following tumor removal. After careful consideration and discussion of all repair options, it was determined that, given the location and nature of the defect, an intermediate linear layered closure offered the best chance for preservation of normal anatomic and functional relationships. Alternate options were discussed and the patient was encouraged to ask questions, which, I believe, were answered appropriately. Informed consent was obtained in writing. After informed consent was obtained and appropriate instruction was provided, the patient underwent operative repair as follows. PROCEDURE: Patient position: supine Anesthesia: 1% lidocaine with epinephrine 1:100,000 local infiltration Prep: Povodine Iodine The Mohs operative defect was identified, and the area was infiltrated with lidocaine/epinephrine to achieve complete anesthesia and to augment hemostasis. The area was prepped in the usual sterile and was draped with sterile drapes. A linear closure was designed with care to place the operative repair within functional and cosmetic lines to minimize the postoperative distortion of normal tissues. The wound edges were prepared using a # 15 scalpel blade to precisely delineate the operative repair and were then undermined with combined blunt and, as needed, sharp dissection taking great care to avoid functionally important vessels and nerves. Undermining was carried out at the level of the subcutaneous fat Hemostasis of the operative wound was obtained with careful spot electrocoagulation,and ligature as indicated. The wound edges were then approximated using 5.0 Monocryl (poliglecaprone 25) buried interrupted sutures at the level of the subcutis and dermis. The epidermis was then approximated using cyanoacrylate tissue glue. The final wound length was 3.5 cm. FINAL DIAGNOSIS: Defect following microscopically controlled excision FINAL PROCEDURE: Intermediate linear closure BLOOD LOSS: minimal OPERATIVE TIME: 30 minutes COMPLICATIONS: None NOTE: None SHAVE BIOPSY PATIENT INFORMATION: Yunior Fernandez : MRN: [id number] SURGEON: Nicolas Leon MD I personally performed the procedure Nicolas Leon MD Chief of Dermatology [facility] The indication, risks, benefits and alternatives to this procedure were discussed in detail with the patient and all questions were answered. Informed consent was obtained in writing. PROCEDURE NOTE Specimen A Procedure: Tangential Shave Indication: Diagnostic Biopsy Site: left upper lip Anesthesia: 1% lidocaine with epinephrine 1:100,000 local infiltration Prep: Povodine Iodine The lesion was prepped as above and locally anesthetized. The specimen was removed by tangential shave using a Dermablade??. Hemostasis was achieved with pressure and/or aluminum chloride. The wound was cleansed with alcohol and a sterile dressing was applied over Petrolatum ointment. Verbal and written wound care instructions were given.The specimen was submitted to pathology for histological evaluation. Dermatologic Surgery FROZEN SECTION BIOPSY REPORT . PATIENT INFORMATION: Yunior Fernandez : MRN: [id number] PROVIDER: Nicolas Leon MD I personally performed the procedure Nicolas Leon MD Chief of Dermatology [facility] DETAILS: Specimen A Location: left upper lip Final pathology diagnosis and microscopic description: Squamous cell carcinoma in-situ -- Within the epidermis is a full-thickness proliferation of atypical keratinocytes with mitoses. The overlying stratum corneum demonstrates parakeratosis. No invasion is noted. Specimen received: Shave Biopsy Clinical history: [place] keratotic papule Gross description: Received as fresh tissue as a small oriented biopsy of skin. The specimen was transected and submitted for frozen section biopsy. MOHS OPERATIVE REPORT Patient Name: Yunior Fernandez Date of Service: August 19, 2016 Surgeon: Nicolas Leon MD I personally performed the procedure Nicolas Leon MD Chief of Dermatology [facility] Outside Sales Account Representative: Omar Del Rio MD Case #: [id number] Preoperative Diagnosis: squamous cell carcinoma in situ Preoperative Procedure: Mohs micrographic surgery Location of Lesion: left upper lip Preoperative Lesion Size: 0.4 cm x 0.3 cm Preoperative Procedure: Mohs microscopically-controlled fresh tissue excision Indications: The patient presents with a squamous cell carcinoma in situ. Because of the histologicand clinical nature of the lesion, as well as its location, the need to achieve the highest cure rate while providing maximum tissue preservation warranted tumor extirpation via microscopically-controlled excision using the Mohs fresh tissue technique. Alternate therapeutic options were discussed on several occasions prior to surgery. After informed consent was obtained and appropriate instruction was provided, the patient underwent tumor extirpation by the Mohs fresh tissue technique as follows: PROCEDURE - INITIAL STAGE: Patient position: supine Anesthesia: 1% lidocaine with epinephrine 1:100,000 local infiltration Prep: Povodine Iodine The patient was brought to the operative suite. The lesion was identified and was prepped in a sterile fashion. The area was infiltrated with lidocaine/epinephrine to achieve complete anesthesia and to augment hemostasis. An initial beveled excision was performed to the subcutis with a scalpel blade and tissue scissors as indicated. A hash was created in the specimen and within the adjacent epidermis for marking purposes. The Mohs specimen was excised in a sharp manner, and carefully placed in proper orientation on the surgical tray. Hemostasis of the operative wound was obtained with carefulspot electrocoagulation. A sterile non-adherent dressing was applied to the operative wound. The Mohs tissue specimen was carefully transferred to the lab where the tissue was divided, and color inked for orientation by me. These specimens were mapped and then handed personally to the food quality technician for frozen sectioning. The tissue was embedded so that the deep and surface margins lay in the same plane, and sections were made through this plane. Once the slide preparation was complete I personally performed histologic evaluation and interpretation of all sections. A summary of my findingsmay be found below. Stage 1 findings: Wound Depth subcutis Sections Created 2 Number of Sections Containing Tumor 0 With the patient clear of microscopic tumor, surgery was considered complete. Postoperative Wound Size: 0.5 x 0.5 cm Final Diagnosis: squamous cell carcinoma in situ Final Procedure: Mohs micrographic surgery Blood Loss: Minimal Operative Time: 30 minutes Complications: None Note: None INTERMEDIATE REPAIR PATIENT INFORMATION: Yunior Fernandez SURGEON: Nicolas Leon MD CANDY FEEDER: Omar Del Rio MD PREOPERATIVE DIAGNOSIS: Squamous Cell Carcinoma in situ PREOPERATIVE PROCEDURE: Intermediate Linear Closure LOCATION of WOUND: left upper lip WOUND DIMENSIONS: 0.5 cm x 0.5 cm INDICATIONS: The patient presents with an operative wound following tumor removal. After careful consideration and discussion of all repair options, it was determined that, given the location and nature of the defect, an intermediate linear layered closure offered the best chance for preservation of normal anatomic and functional relationships. Alternate options were discussed and the patient was encouraged to ask questions, which, I believe, were answered appropriately. Informed consent was obtained in writing. After informed consent was obtained and appropriate instruction was provided, the patient underwent operative repair as follows. PROCEDURE: Patient position: supine Anesthesia: 1% lidocaine with epinephrine 1:100,000 local infiltration Prep: Povodine Iodine The Mohs operative defect was identified, and the area was infiltrated with lidocaine/epinephrine to achieve complete anesthesia and to augment hemostasis. The area was prepped in the usual sterile and was draped with sterile drapes. A linear closure was designed with care to place the operative repair within functional and cosmetic lines to minimize the postoperative distortion of normal tissues. The wound edges were prepared using a # 15 scalpel blade to precisely delineate the operative repair and were then undermined with combined blunt and, as needed, sharp dissection taking great care to avoid functionally important vessels and nerves. Undermining was carried out at the level of the subcutaneous fat Hemostasis of the operative wound was obtained with careful spot electrocoagulation,and ligature as indicated. The wound edges were then approximated using 5.0 Monocryl (poliglecaprone 25) buried interrupted sutures at the level of the subcutis and dermis. The epidermis was then approximated using 6.0 Fast absorbing plain gut and cyanoacrylate tissue glue. The final wound length was 2.1 cm. FINAL DIAGNOSIS: Defect following microscopically controlled excision FINAL PROCEDURE: Intermediate linear closure BLOOD LOSS: minimal OPERATIVE TIME: 30 minutes COMPLICATIONS: None NOTE: None Of note, patient noted to have a gritty papule on the left nasal sidewall consistent with actinic keratosis. This lesion was treated with cryotherpay. CRYOSURGERY PROCEDURE NOTE PATIENT INFORMATION: Yunior Fernandez [id number] 1965 DATE OF PROCEDURE: 08/19/2016 CANDY FEEDER: Omar Del Rio MD 08/19/2016 INDICATION(S): actinic keratosis(es) LOCATION(S): Left nasal sidewall The indication, risks, benefits and alternatives to this procedure were discussed in detail with the patient and all questions were answered. A total of 1 lesion(s) on the above stated locations weredestroyed with liquid nitrogen cryosurgery. The expected reaction and healing course were discussed, as well as the possibility of incomplete resolution and/or permanent dyspigmentation. Verbal woundcare instructions were given. COMPLICATIONS: None NOTE: None Red = Mohs surgery Blue = Actinic keratosis treated with cryo. Omar Del Rio MD 08/19/2016 * Omar Del Rio MD - 08/19/2016 0745 EDT Images from the original note were not included. MOHS SURGERY POST-OP SUMMARY Yunior Fernandez is a 51 y.o. year old male who underwent Mohs surgery today 08/19/2016. The followingis a summary of the operative findings: Lesion 1 basal cell carcinoma Location left yazidism Size Preop (cm) 0.8 x 1.0 cm Size Postop (cm) 1.0 x 1.2 cm Stages 1 Depth of Excision subcutis Repair intermediate linear repair Lesion 2 squamous cell carcinoma in situ Location left upper lip Size Preop (cm) 0.4 x 0.3 cm Size Postop (cm) 0.5 x 0.5 cm Stages 1 Depth of Excision subcutis Repair intermediate linear repair Mr. Fernandez was discharged from the operative suite in good condition. He was carefully instructed in postoperative wound care both verbally and in writing. Note: Actinic keratosis on the left nasal sidewall also treated. Omar Del Rio MD 08/19/2016 Attestation statement: I saw and examined the patient with the resident/fellow. I agree with the findings and plan of care documented in the resident's/fellow's note. I was present for the yee and critical components of the operative procedures and immediately available throughout. Nicolas Leon MD Chief of Dermatology [facility] * Emmy Coleman - 08/19/2016 0745 EDT Patient Education Topic: Wound Care Method: Demonstration, Handout and Verbal Taught to: Patient Barriers: None Outcomes: independent Signature: Emmy Coleman 08/19/2016 7:40 documented in this encounter Plan of Treatment Not on file documented as of this encounter Procedures Procedure Name Priority Date/Time Associated Diagnosis Comments PROCEDURE REPORTS - SCANNED 09/01/2016 15:15 EDT documented in this encounter Results * PROCEDURE REPORTS - SCANNED (09/01/2016 15:15 EDT) 09/01/2016 15:1 5 EDT us Scan 2 Fuel System Maintenance Worker PROCEDURE/MINOR SURGICAL OR DERABLES Final Result documented in this encounter Visit Diagnoses Diagnosis Basal cell carcinoma of left yazidism region- Primary Basal cell carcinoma of skin of other and unspecified parts of face 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
--- OUTSIDE RECORDS SUMMARY | 2024-11-10 01:29 | XMS_ITS | Encounter Summary ---
Author Organization [facility] Address [address] [place] [address] Care Team Providers Care Mold Carpenter Name Role Phone Tony Bose MD Primary Care Provid er Encounter Details Date Type Department Care Team (Late st Contact Info) Description 10/25/2024 Lab Requisition [facility] Pathology & Laboratory Medicine - [facility] [address] [place] [address] Outr Resulting Lab, Provider Social History Tobacco [...] Procedure Name Priority Date/Time Associated Diagnosis Comments LYME AB Routine 10/25/2024 6:39 EST documented in this encounter Results * LYME AB (10/25/2024 6:39 EST) Lyme Ab Negative Negative 10/26/2024 9:42 EST [facility] Blood VENOUS BLOOD / Unknown 10/25/2024 6:39 EST 10/25/2024 17:38 EST us Provider Outr Resulting Lab IMMUNOLOGY AND SEROL OGY ORDERABLES Final Result Performing Organization Address City/State/[facility] Co de Phone Number [facility] [address] [place] [address] documented in this encounter Visit Diagnoses Not on filedocumented in this encounter Care Teams Mold Carpenter Relationship Specialty Start Date End Date Tony Bose MD [address] [place] [id number] PCP - General 11/26/12 documented as of this encounter
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
--- OUTSIDE RECORDS SUMMARY | 2024-11-10 01:29 | XMS_ITS | Encounter Summary ---
Author Organization [facility] Address [address] [place] [address] Care Team Providers Care Branch Customer Service Representative Name Role Phone Tony Bose MD Primary Care Provid er Encounter Details Date Type Department Care Team (Late st Contact Info) Description 12/23/2016 14:24 EST - 12/23/2016 23:59 EST Hospital Encounter [facility] Endoscopy Outpatient [address] [place] [address] Britany Sheridan MD [address] [place] [address] [address] [place] [id number] Discharge Disposition: Auto Discharge Social History Tobacco [...] Sign Reading Time Taken Comments Blood Pressure 124/91 12/23/2016 1609 EST Pulse - - Temperature 36.6 ??C (97.9 ??F) 12/23/2016 1554 EST Respiratory Rate 21 12/23/2016 1609 EST Oxygen Saturation 94% 12/23/2016 1609 EST Inhaled Oxygen Concentration - - Weight 86.2 kg (190 lb) 12/23/2016 1438 EST Height 188 cm (6' 2) 12/23/2016 1438 EST Body Mass Index 24.39 12/23/2016 1438 EST documented in this encounter Functional Status * [...] Wandy Sutton aret documented in this encounter Discharge Diagnoses Diagnosis Z12.11 Encounter for screening for malignant neoplasm of colon-Z12.11[ICD-10-CM] D12.2 Benign neoplasm of ascending colon-D12.2[ICD-10-CM] D12.4 Benign neoplasm of descending colon-D12.4[ICD-10-CM] K63.5 Polyp of colon-K63.5[ICD-10-CM] Z79.899 Other longterm (current) drug therapy-Z79.899[ICD-10-CM] K62.1 Rectal polyp-K62.1[ICD-10-CM] documented in this encounter Medications at Time [...] by mouth documented as of this encounter Discharge Disposition Disposition Code Departure Means Destination Auto Discharge Home documented in this encounter H&P Notes * Britany Sheridan MD - 12/23/2016 1521 EST Endoscopy Sedation for Procedure History & Physical Date: 12/23/2016 Time: 15:21 Location: [address] Planned Procedure: Colonoscopy Chief Complaint/Indications for Procedure: Screen History Previous Complication with Sedation and/or Anesthesia? No Allergies: No Known Allergies Current Medications: Current Outpatient Prescriptions Medication Sig Dispense Refill ??? acetaminophen (TYLENOL) 650 mg tablet Take 1 Tab by mouth every 4 hours. ??? DOCOSAHEXANOIC ACID/EPA (FISH OIL ORAL) Take by mouth. ??? docusate sodium (COLACE) 100 mg capsule Take 1 Cap by mouth 2 times daily 60 Cap 0 ??? oxyCODONE-acetaminophen (PERCOCET) 5-325 mg per tablet Take 1 Tab by mouth every 4 hours as needed for Pain Daily Max: 6 Tabs 30 Tab 0 ??? VITAMIN B COMPLEX (B COMPLEX ORAL) Take by mouth Current Facility-Administered Medications Medication Route Frequency ??? fentaNYL citrate (PF) 50 mcg/mL injection 100-250 mcg intravenous Once PRN ??? lactated ringers (LR) infusion intravenous CONTINUOUS ??? midazolam (PF) (VERSED) 1 mg/mL injection 1-10 mg intravenous Once PRN ??? ondansetron (PF) (ZOFRAN) injection 2-4 mg intravenous PRN Past Medical History: Past Medical History: Diagnosis Date ??? Basal cell carcinoma of left protestant region 05/19/2016 Mohs surgery ??? Concussion 01/11/2013 ??? L2 vertebral fracture 11/27/2012 ??? Squamous cell carcinoma of skin 08/19/2016 in situ, left upper cutaneous lip, s/p Mohs Social History: Past Surgical History: Procedure Laterality Date ??? INGUINAL HERNIA REPAIR Right 05/23/2015 Mesh & plug ??? MOHS SURGERY Left 08/19/2016 protestant/forehead BCC ??? MOHS SURGERY Left 08/19/2016 SCC in situ, left upper cutaneous lip ??? TONSILLECTOMY Social History Substance Use Topics ??? Smoking status: Never Smoker ??? Smokeless tobacco: Never Used ??? Alcohol use 4.2 oz/week 7 Cans of beer per week Comment: occas Family History: Family History Problem Relation Age of Onset ??? Cancer Mother lung ??? High Blood Pressure Sister ??? Cancer Brother 23 [address] Review of Systems as pertinent: Physical Exam Vital Signs: Visit Vitals ??? BP 139/86 ??? Temp 36.6 ??C (97.9 ??F) (Tympanic) ??? Resp 16 ??? Ht 188 cm (74) ??? Wt 86.2 kg (190 lb) ??? SpO2 96% ??? BMI 24.39 kg/m2 Heart Examination: Cardiac Regularity: Regular Respiratory Examination: Respiratory Pattern: Regular Breath Sounds Right: Clear Breath Sounds Left: Clear Abdominal Examination: Soft, non-tender, bowel sounds normal, no masses, no organomegaly Additional physical exam related to the proposed procedure, patient activity, disease state and treatment as pertinent: Assessment Previous complications with sedation or anesthesia?: No Airway Concerns: None Anesthesia Classification: ASA 1 Plan: Proceed with sedation for procedure Fasting Time: Time of last liquid intake: 1330 (Water) Date of Last Liquid Intake: 12/23/16 Time of last solid intake: 1930 Date of last solid intake: 12/21/16 Patient Appropriate Candidate for Planned Sedation?: Yes Britany Sheridan MD 12/23/2016 15:21 documented in this encounter Plan of Treatment Not on file documented as of this encounter Procedures Procedure Name Priority Date/Time Associated Diagnosis Comments PROCEDURE REPORTS - SCANNED 12/24/2016 0:34 EST SURGICAL PATHOLOGY Routine 12/23/2016 9:50 EST documented in this encounter Results * PROCEDURE REPORTS - SCANNED (12/24/2016 0:34 EST) 12/24/2016 0:34 EST us Scan 2 Four Roll Calender Operator PROCEDURE/MINOR SURGICAL OR DERABLES Final Result * SURGICAL PATHOLOGY (12/23/2016 9:50 EST) Pathology Report: SURGICAL PATHOLOGY REPORT Reports generated via electronic interface contain original data; however they are lacking the format of the original report. Caution should be taken when reading/interpret ing unformatted reports. Name: ? MARY MORENO ? Accession #: ? [id number] ? : ? 1965 (Age: 51) ??M ? Collect Date: ? 12/23/2016 ? Location: ? [facility] ? Receive Date: ? 12/24/2016 ? Provider: BRITANY SHERIDAN MD Copy to: TONY BOSE MD ? Final Pathologic Diagnosis: A. ??COLON, RIGHT, POLYP, BIOPSY: - ??Fragments of sessile serrated adenoma. B. ??COLON, LEFT, POLYPS X 2, BIOPSY: - ??Tubular adenoma. - ??Hyperplastic polyp. Document reviewed and electronically signed by: MINERVA COLLINS MD Report ??Date: 12/25/2016 10:46 By the signature above, the attending physician certifies that he/she has personally conducted a gross and/or microscopic examination of the described specimens and rendered or confirmed the above diagnosis. Specimen(s) Received: A. ??R colon polyp B. ??L colon polyps x2 Clinical History: Screening colonoscopy Gross Description: A. ?Received in formalin labelled with proper patient identification (initials M, S) and right colon polyp are 16 cutler-yellow tissues (0.1 x 0.1 x less than 0.1 cm to 0.4 x 0.3 x 0.2 cm). Entirely submitted in A1-A5. B. ?Received in formalin labelled with proper patient identification (initials M, S) and left colon polyps are two cutler-yellow mottled polypoid tissues (0.3 x 0.2 x 0.2 cm and 0.8 x 0.4 x 0.3 cm). The margin of the larger tissue fragment is inked blue. The larger tissue fragment is bisected and submitted in B1. The smaller tissue fragment is submitted intact in B2. Nicole Rodney 12/24/2016 12:30 PM End of Report [facility] 12/23/2016 9:50 EST 12/24/2016 us Britany Sheridan MD PATHOLOGY ORDERABLES Fi nal Result [facility] [address] [place] [address] documented in this encounter Visit Diagnoses Not on filedocumented in this encounter Administered Medications Inactive Administered Medications - up to 3 most recent administrations Medication Order MAR Action Action Date Dose Rate Site fentaNYL citrate (PF) 50 mcg/mL injection 100-250 mcg 100-250 mcg, intravenous, ONCE PRN, 1 dose, Starting on Wed12/23/16 at 1430, Until Wed12/23/16 at 1535, Other, sedation, Routine, Intraprocedure Given 12/23/2016 15:35 EST 150 mcg lactated ringers (LR) infusion 30 mL/hr, intravenous, CONTINUOUS, Starting on Wed12/23/16 at 1500, Until Wed12/25/16 at 0418, Routine, Preprocedure New Bag 12/23/2016 14:56 EST 30 mL/hr 30 mL/hr midazolam (PF) (VERSED) 1 mg/mL injection 1-10 mg 1-10 mg, intravenous, ONCE PRN, 1 dose, Starting on Wed12/23/16 at 1430, Until Wed12/23/16 at 1535, Sedation, Routine, Intraprocedure Given 12/23/2016 15:35 EST 3 mg documented in this encounter Orders Medications Ordered That Jb ht Not Have Been Administered Count Last Ordered Date First Ordered Date ondansetron (PF) (ZOFRAN) injection 2-4 mg 1 12/23/2016 Discharge Count Last Ordered Date First Orde red Date DISCHARGE PATIENT 1 12/23/2016 documented in this encounter Care Teams Branch Customer Service Representative Relationship Specialty Start Date End Date Tony Bose MD [address] [place] [id number] PCP - General 11/26/12 documented as of this encounter
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
--- OUTSIDE RECORDS SUMMARY | 2024-11-10 01:30 | XMS_ITS | Encounter Summary ---
Author Organization [facility] Address [address] [place] [address] Care Team Providers Care Mixer Lever Operator Name Role Phone Unavailable Primary Care Provider Unavailabl e Encounter Details Date Type Department Care Team (Late st Contact Info) Description 08/15/2005 14:11 EDT Hospital Encounter [facility] - Other [address] [place] [address] Gabbie Gonzalez PA [address] [place] [address] Social History Tobacco Use Types Packs/Day Years [...] on file documented as of this encounter Plan of Treatment Pending Results Name Type Priority Associated Diagnoses Date /Time OUTSIDE IMAGES - OTHER CHEST Imaging 11/26/2012 16:45 EST Scheduled Orders Name Type Priority Associated Diagnoses Orde r Schedule OUTSIDE IMAGES - OTHER CHEST Imaging For medications that can be administered at any time during the hospitalization for visit such as immunizations. for 1 Occurrences starting 11/26/2012 documented as of this encounter Procedures Procedure Name Priority Date/Time Associated Diagnosis Comments LYME ANTIBODY Routine 08/15/2005 10:15 EDT documented in this encounter Results * LYME ANTIBODY (08/15/2005 10:15 EDT) Lyme Ab Neg NEGAT [facility] 08/15/2005 10:1 5 EDT 08/15/2005 16:02 EDT Gabbie [facility] IMMUNOLOGY AND SEROLOG Y ORDERABLES Final Result [facility] [address] [place] [address] documented in this encounter Visit Diagnoses Not on filedocumented in this encounter
--- OUTSIDE RECORDS SUMMARY | 2024-11-10 01:30 | XMS_ITS | Encounter Summary ---
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 Management/Social Work Needs and Issues (housing, care, financial, transportation, cultural, spiritual, emotional, legal, etc.): Commercial. 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 He has been in touch w/his employer. He is aware he has short term dis. & i gave him fax number to [employer] for any paperwork. 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 Explained that i can assist in getting equipment & setting up home health services as needed. I am not here tomorrow, please page brian cordero as needed Shawn Wakefield tilt wall supervisor [phone] * Linsey Arciniega - 11/28/2012 1229 EST Rehabilitation Therapies [facility] Physical Therapy Initial Evaluation Note Date of Service: 11/28/2012 Reason for Referral: Evaluate and treat Precautions: Non-weight bearing, Chary brace on at all times, dangle only until x-rays are done SUBJECTIVE: I have been up to the edge of the bed once this morning with the nurse. Pain: Location: low back, rib cage Intensity: 4-5/10 (at present), 4-5/10 (at best), 8/10 (at worst) Frequency: constant Quality: Dull throb Aggravating factors: Moving to the edge of bed Alleviating factors: Pain medication OBJECTIVE: Patient Profile: Patient is a 47 y.o. male admitted on 11/26/2012 secondary to MULTIPLE TRAUMA The patient lives at [address] [place] [id number] [address] & P per Dr. Jensen Mcmullen's note on 11/26/12: Patient is a 47 y.o. male who presents after hitting a retaining fence and possibly a tree while skiing at [employer] this afternoon. He was helmeted. He had LOC of unknown duration. He was brought to [facility] for initial evaluation. He was found to havemultiple rib fx, lumbar fx, bilat pleural effusions, possible bilat PTX, possible scapula fx. CT head was negative. He was transported to [facility] for definitive care. Home environment Lives: Alone Caregiver Support: 24-hour assist initially from girlfriend Equipment Available: None Home Environment: House Home Layout: Multi-level; main living is on the 2nd floor and primary source of heat is on the first floor, as this is where the wood stove is located. 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 Multiple trauma ??? L2 vertebral fracture Past: Past Medical History Diagnosis Date ??? L2 vertebral fracture 11/27/2012 Past Surgical History Procedure Date ??? Tonsillectomy Medications: Medications reviewed Arousal, Attention, and Cognition: Orientation: Alert Oriented to person, place, and time Cardiopulmonary: Vital Signs: Activity Heart rate (bpm) Blood Pressure (mmHg) Respiratory rate (breaths/min) Oxygen Sat/ Fractions of inspired Oxygen SPO2/FIO2 % Pre 91 142/85 ne 93% RA During ne ne ne ne Post 94 132/87 ne 99% RA Integumentary/Anthropometric Characteristics: Palpation/Observation: L UE in shoulder sling and Chary brace on Posture: Limited evaluation due to limited mobility Range of Motion and Joint Integrity: Active Range of Motion: Within normal limits except as noted Upper Quarter: Left Upper Extremity: not evaluated Right Upper Extremity: Cervical Spine: not evaluated Lower Quarter: Left Lower Extremity: Right Lower Extremity: Lumbar Spine: not evaluated Muscle Performance: Strength: Formal resistive muscle testing was not performed due to pt unable to attain proper positioning; resistive muscle testing performed in supine with HOB elevated >60 degrees Upper Quarter: Left Upper Extremity: not evaluated Right Upper Extremity: 5/5 shoulder flexion, biceps, triceps, social economist strength; 4/5 ABD with c/o discomfort in rib cage Cervical Spine: not evaluated Lower Quarter: Left Lower Extremity: >3/5 as functionally demonstrated Right Lower Extremity: >3/5 as functionally demonstrated Lumbar Spine: Sensation, Reflexes, and Nerve Integrity: Light Touch Sensation: Upper Quarter: Intact C2-T1 Lower Quarter: Intact for lower extremities Neuromotor Function/Development: No problems noted Balance, Locomotion, and Gait: Balance: Not evaluated due to evaluation limited to bedside examination. See assessment. Locomotion: Not evaluated as wheelchair mobility does not apply to this patient. Gait: Not evaluated due to evaluation limited to bedside examination. See assessment. Self-Care, Home Management, Work, and Leisure: Mobility evaluation as follows: Rolling: not evaluated Supine to sit: supervision with use of bed features and HOB 45 degrees Sit to supine: not evaluated Sit to stand: not evaluated Stand to sit: not evaluated Bed to chair: not evaluated Chair to bed: not evaluated Informed Consent: The patient consented to the physical therapy evaluation. The patient agrees to and understands the physical therapy treatment plan and goals. Interventions Completed Today: Physical Therapy today at: 11:10-11:45 Examination: 20 minutes Intervention: 15 minutes Intervention included: Therapeutic activities: Pt required verbal cues for supine > sit bed mobility regarding technique and hand placement, as pt is NWB L UE. Pt was able to demonstrate understanding. Pt fit for shoulder sling. Pt instructed on donning/doffing sling and answered any questions that the pt had regarding diagnosis and overall mobility. Pt required verbal cues regarding rationale for activity pacing, as pt was trying to do more than he was allowed to due based on MD orders. Patient/Family Education: Topic: Bed mobility Positioning Role of therapy Learner: patient and caregiver Method: verbal Barriers to Learning: none noted Outcome: verbalized understanding and returned demonstration Team Communication: Discussed pt's status with nurse before and after entering pt's room. Nurse stated confusion regarding mobilize/dangle order, therefore spoke with resident to get clarification. ASSESSMENT: Upper Quarter Screen: Positive findings (please refer to physical therapy prognosis section of assessment for details) Physical Therapy Diagnosis: Impaired joint mobility, motor function, muscle performance, and ROM associated with multiple fractures due to trauma Physical Therapy Prognosis: Unable to assess pt's L UE at this time, however anticipate decreased ROM due to pain. Pt also presented with deficits in bed mobility due to pain. Pt was independent in prior level of function, is motivated to return home and is able to verbalize and demonstrate PT recom mendations. Pt also does not present with any other co-morbidities, therefore anticipate pt will progress quickly. Skilled PT is medically necessary to continue to educate pt regarding techniques formobility, as he is non-weight bearing L UE and is required to wear a shoulder brace at all times. At this time recommend discharge home with 24/7 assistance from girlfriend when PT goals are met and when medically stable. Due to limited evaluation, transfers, ambulation and stairs were not assessed, therefore recommend home health PT vs outpatient PT. Will confirm when there is a complete assessment of functional mobility. Short-Term Goals: N/A Long-Term Goals: 5-7 days ?? Supine <> sit mod I with bed flat and no use of bed features, while maintaining NWB L UE ?? Sit <> stand mod I ?? Ambulate 150 feet mod I demonstrating correct technique and gait pattern ?? Ascend/descend stairs mod I ?? Vitals within parameters throughout PT intervention ?? Pt able to verbalize and demonstrate PT recommendations PLAN: Treatment/Intervention: Physical therapy will be provided by physical therapist and/or physical therapist fire control assistant when medically appropriate. Frequency: daily 3-5 times per week as determined by the patient's medical stability, tolerance to activity and progression of functional activities Intensity: 30 minutes per session Duration: During hospitalization Interventions may include:Therapeutic exercises, Therapeutic activities and Gait training Patient/family education: Precautions, Recommendations, Role of physical therapy/rehabilitation, Safety Further Data: None at this time Recommended Discharge Destination: Home with significant other Recommended Discharge Services: Home health physical therapy vs. Outpatient physical therapy Recommended Equipment Needs: No equipment necessary Other recommendations: No other consults recommended at this time Pager: [phone] Linsey Arciniega [facility] 11/28/2012 12:29 Cosigned by Tianna Acosta PT at 11/28/2012 16:00 EST * Lele Esparza OT - 11/28/2012 1025 EST Rehabilitation Therapies [facility] Occupational Therapy Initial Evaluation Date of Service: 11/28/2012 Reason for Referral: TBI mini-screen Precautions: 11/28/12: May begin to mobilize/dangle [Maintain in Chary brace] NWB LUE; Sling to LUE SUBJECTIVE: Thank you for your help Pain: No pain reported during the interview. OBJECTIVE: Patient Profile: Mary Moreno is a right hand dominant 47 y.o. male admitted on 11/26/2012 secondary to MULTIPLE TRAUMA The patient lives at [address] [place] [address] Road [facility] [id number] History of Present Illness/Injury: Per Dr. Mcmullen's H&P: Patient is a 47 y.o. male who presents after hitting a retaining fence and possibly a tree while skiing at [employer] this afternoon. He was helmeted. He had LOC of unknown duration. He was brought to [facility] for initial evaluation. He was foundto have multiple rib fx, lumbar fx, bilat pleural effusions, possible bilat PTX, possible scapula fx. CT head was negative. He was transported to [facility] for definitive care. Per Dr. Wilks's note dated 11/28/12: Maintain in [place] brace. Once patient can tolerate a TLSO, would prefer to transition to this, however, do not believe he will tolerate given his other injuries.Can slowly mobilize (dangle feet off bed for now if pain allows) Will need uprights centered at L1 while in brace prior to D/C - ordered for tomorrow NWB LUE Sling to LUE. Scapula fracture to be treat ed non-operatively Living Environment/Home Set-up: lives with his girlfriend; they are working out arrangements for him to stay on one level if needed. 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 Multiple trauma ??? L2 vertebral fracture chest CT: B/l small pleural effusions, right contusion, ?R pneumo, T4-T8 tp fractures, L1 compression fx with retropulsion, R rib fx 3, 8-11, L scapula fx Past: Past Medical History Diagnosis Date ??? L2 vertebral fracture 11/27/2012 Past Surgical History Procedure Date ??? Tonsillectomy Medications: Medications reviewed Body Functions and Performance Skills: Cardiovascular/Respiratory Systems Function: Vital Signs: Vital signs have been stable with interventions and were not monitored. Mental Functions: Specific Mental Functions: Neurobehavioral Cognitive Status Examination (NCSE) The patient fell within the normal range across all categories of this screen Global Mental Functions: Towner Orientation and Amnesia Test (GOAT) score:100 (below 65 = impaired, 66-75 = borderline impaired, 76-100 = normal) Sensory Functions: Vision: no problems noted or reported, except that patient reports, at baseline, that he probably needs glasses for distance Hearing: WNL for normal conversational tones Neuromusculoskeletal and Movement Related Functions: Not evaluated due to not relevant to this assessment. Skin and Related Structure Functions: Not evaluated due to not relevant to this assessment. Areas of Occupation and Performance Skills: Basic Activities of Daily Living: Not evaluated due to not relevant to this assessment. Instrumental Activities of Daily Living: Not evaluated due to not relevant to this assessment. Rest and Sleep: Not evaluated due to not relevant to this assessment. Education: No problems noted. Work: May be limited, initially, due to orthopedic injuries Leisure: Limited by orthopedic injuries for snowboarding Social Participation: No problems noted. Outcome Measures: Not evaluated due to not relevant to this assessment. Informed Consent: The patient consented to the occupational therapy evaluation. The patient agrees to and understandsthe occupational therapy treatment plan and goals. Interventions completed today: Occupational therapy today at 1045. Evaluation: 20 minutes Intervention: 5 minutes Intervention included: Self-Care/Home Management: Education was provided on the adult head injury fact sheet. Instructed them to notify their physician of any functional impairment noted post-discharge. Patient/Family Education: Topic: Adult Head Injury Fact Sheet Learner: patient and girlfriend Method: verbal and handout Barriers to Learning: none noted Outcome: verbalized understanding Team Communication: Spoke with nursing prior to intervention. ASSESSMENT: The patient was appropriate for skilled occupational therapy evaluation due to a traumatic brain injury. The patient appears to have no new cognitive deficits as a result of the traumatic brain injury. Skilled occupational therapy is no longer indicated. GOALS: Short Term Goals: None identified at this time [facility] Goals: Was set and met The patient/family verbalizes understanding of the adult head injury fact sheet PLAN: Intervention: Discontinue occupational therapy at [facility] for OT HIMS; have received an OT evaluate and treat order to address ADLs. Further Data: ADL assessment as indicated once patient able to mobilize out of bed Patient/Family Education: none Discharge Plan: To be determined pending PT evaluation and OT ADL evaluation Pager: [phone] LELE ESPARZA OT, 11/28/2012, 10:25 * Jensen Mcmullen MD - 11/28/2012 0949 EST Trauma Tertiary Survey Admit Date: 11/26/2012 Date of Service: 11/28/2012 Chief Complaint: Rib pain 24 Hour Events: MRI shows no ligamentous injury. Awaiting TLSO brace Subjective: Mary Moreno felt nauseas briefly yesterday while getting dilaudid but otherwise denies nausea/shortness of breath or chest pressure. His ribs are sore when taking a deep breath. Injuries Identified: See Injury list/Problem list [facility] Past Medical History Diagnosis Date ??? L2 vertebral fracture 11/27/2012 Social History Family History History Substance Use Topics ??? Smoking status: Never Smoker ??? Smokeless tobacco: Not on file ??? Alcohol Use: No History reviewed. No pertinent family history. PCP: Dr. Bose Review of Systems: A ten point review of systems was performed. Pertinent positives are listed below, all others are negative: Gastrointestinal: positive for no flatus or BM Musculoskeletal: positive for back pain and bone pain Vital Signs last 24 hours: Temp: [36.8 ??C (98.2 ??F)-37.8 ??C (100 ??F)] , Pulse: [82-94] , Resp: [18] , BP: (131-143)/(60-81) , SpO2: [93 %-97 %] Pain: Patient Vitals for the past 8 hrs: Numeric Pain Level (Scale 1-10) Asleep 11/28/12 0943 5 - 11/28/12 0909 5 - 11/28/12 0840 5 - 11/28/12 0748 4 - 11/28/12 0650 4 - 11/28/12 0533 0 Reassessed, sleeping comfortably, RR WNL. 11/28/12 0457 4 - Intake/Output Summary (Last 24 hours) at 11/28/12 0949 Last data filed at 11/28/12 0749 Gross per 24 hour Intake 3893.34 ml Output 1225 ml Net 2668.34 ml Current Diet: General Limitations to participate in tertiary survey no Physical Exam: Head: normocephalic/atraumatic Eyes: pupils 3 mm, bilaterally reactive to light ENT: oropharynx clear Neck: supple, non-tender and trachea midline Respiratory: clear to auscultation bilaterally Cardiovascular: regular rate and rhythm Abdomen: soft, non-tender; non-distended, normal bowel sounds Back: Not performed given brace Pelvis: non-tender, stable to anterior/posterior/lateral compression Genitourinary: normal male genitalia Musculoskeletal/Extremities: no palpable long bone deformities Skin: grossly intact Neurologic: alert, oriented, normal speech, no focal findings or movement disorder noted Pressure Ulcer Present on admission? No Trauma ED Lines removed? yes (all trauma ED Lines shoud be removed within 24hrs) Is PICC or Central line present? No, PICC/Central line not present. Radiographic Findings: 11/26/[address] scan: Impression: 1. No solid organ or hollow viscous injury injury identified. 2. Multiple fractures including burst fracture of L1 with a retropulsed fragment into the spinal canal, a compression fracture of the T9 vertebral body, and multiple bilateral rib fractures. 3. Incidentalfinding of an osseous exophytic lesion arising from the lesser trochanter of the right femur; differential diagnosis includes an ossifying lipoma or osteochondroma. This finding is not described in the outside report. MRI 11/27/12: Impression: 1. There is no evidence of ligamentous injury on this examination. 2. Compression fractures of the T6, T9, T11 and L1 vertebra. 3. Mild right lateral recess stenosis is caused by retropulsion of the fracture fragment at L1. 4. Bilateral pleural effusions. 5. A combination of bulging discs along with ligamentum flavum hypertrophy and facet arthropathy causes lateral recessstenosis bilaterally at L3-L4 and L4-L5. Lab results Last 24: Recent Results (from the past 24 hour(s)) ELECTROLYTES Collection Time 11/28/12 0524 Component Value Range Sodium 138 136 - 145 (mEq/L) Potassium 3.8 3.5 - 5.0 (mEq/L) Chloride 103 96 - 110 (mEq/L) CO2 30 24 - 32 (mEq/L) BUN Collection Time 11/28/12 0524 Component Value Range BUN 12 10 - 26 (mg/dl) CREATININE Collection Time 11/28/12 0524 Component Value Range Creatinine 0.74 0.66 - 1.25 (mg/dl) GFR, Calculated >60 >60 (ml/min/1.73m2) HEMAGRAM Collection Time 11/28/12 0524 Component Value Range WBC 7.57 4.0 - 10.4 (K/cmm) RBC 4.07 (*) 4.36 - 5.78 (M/cmm) Hemoglobin 12.2 (*) 13.8 - 17.3 (gm/dl) HCT 36.6 (*) 39.5 - 50.2 (%) MCV 90 81 - 95 (fl) MCH 30.0 27.6 - 33.0 (pg) MCHC 33.4 32.8 - 36.4 (gm/dl) PLT 134 (*) 141 - 320 (K/cmm) RDW-CV 13.0 11.8 - 14.1 (%) DIFFERENTIAL Collection Time 11/28/12 0524 Component Value Range Neutrophils 73.2 45.5 - 79.7 (%) Lymphocytes 18.9 15.0 - 46.8 (%) Monocytes 6.9 1.8 - 12.0 (%) Eosinophils 0.6 0.6 - 6.9 (%) Basophils 0.4 0.2 - 1.4 (%) ABS Neutrophils 5.54 2.20 - 8.85 (K/cmm) ABS Lymphs 1.43 1.09 - 3.30 (K/cmm) ABS Monocytes 0.53 0.1 - 0.8 (K/cmm) ABS Eosinophils 0.05 0.03 - 0.61 (K/cmm) ABS Basophils 0.03 0.01 - 0.11 (K/cmm) Type of Diff: Automated Assessment/Problems: Patient Active Problem List Diagnoses Date Noted ??? *(H)L2 vertebral fracture 11/27/2012 Two column burst, neurologically stable. ??? (H)Multiple trauma 11/26/2012 Mary Moreno is a healthy 47 year old who hit a tree while snowboarding. He has multiple orthopedic injuries including an L1 vertebral body fracture with retropulsion. He is neurologically intact. Ortho is treating fractures non- operatively with a brace. Patient is hemodynamically stable. No additional injuries identified on tertiary exam. Plan: - TLS precautions - bed rest until cleared for activity by Orthopedic Surgery - dangle and slowly mobilize - OTHIMS - Ortho recs: Brace for L1 fracture - Regular diet - SLIV - d/c grewal catheter Discharge Plan/Referrals Needed: Home or self-care Jensen Mcmullen MD 11/28/2012 9:49 * Tanner Wilks MD - 11/28/2012 0943 EST Orthopaedics: Spine Service Progress Note Admit Date: 11/26/2012 Hospital LOS: 2 days Postoperative Day NA Procedure [ Dangelo Graff MD - 11/26/2012] - NA Subjective: No Acute Events. Feeling sore. Denies numbness, tingling, chest pain, shortness of breath, fevers, chills. Objective: afebrile Temp (24hrs), Av.4 ??C (99.3 ??F), Min:36.8 ??C (98.2 ??F), Max:37.8 ??C (100 ??F) Vitals: stable Patient Vitals for the past 8 hrs: BP Temp Temp src Pulse Resp SpO2 11/28/12 0736 132/70 mmHg 36.9 ??C (98.4 ??F) Tympanic - 18 96 % 11/28/12 0300 131/74 mmHg 36.8 ??C (98.2 ??F) Tympanic 82 18 97 % Intake/Output Summary (Last 24 hours) at 11/28/12 0943 Last data filed at 11/28/12 0749 Gross per 24 hour Intake 3893.34 ml Output 1225 ml Net 2668.34 ml UOP 0.5 cc/kg/hr Net: +1.3 L Exam: Patient is alert and oriented in mild distress Non-labored breathing No cyanosis distally, extremities warm, well perfused Strength Ilio-psoas Ham-string Quads Gastoc-soleus Tibialis anterior Ext. Hallicus Peroneal Flex. Hallicus Right 4+/5 5/5 5/5 5/5 5/5 5/5 5/5 5/5 Left 4+/5 5/5 5/5 5/5 5/5 5/5 5/5 5/5 Reflexes Patellar Achilles Babinski Clonus Right 2+ 1+ down neg Left 2+ 1+ down neg Light touch sensation intact L2-S2 Toes warm, perfused with brisk capillary refill Recent Labs Basename 11/28/12 0524 11/27/12 0519 WBC 7.57 10.90* HCT 36.6* 38.5* HGB 12.2* 12.6* PLT 134* 153 NA 138 139 K 3.8 3.9 CL 103 106 CO2 30 28 BUN 12 13 CREATININE 0.74 0.78 SEDRATE -- -- CRP -- -- No results found for this basename: GLUCOSEFINGE:12 in the last 72 hours Upright Films: ordered for tomorrow Assessment: Mary Moreno is a 47 y.o. male who was in a ski accident and sustained multiple injuries. Ortho injuries include: 1. Left scapula fracture 2. Left TP fractures of T3-9 3. T9 anterior superior endplate compression fracture with minimal height loss 4. L1 2 column burst fracture with minimal height loss but some retropulsion Principal Problem: *L2 vertebral fracture Active Problems: Multiple trauma The patient will be ready for discharge to home or rehab when: 1. Ambulating and passing PT 2. Satisfactory physical exam before and after ambulation 3. Tolerating PO 4. Pain is controlled on oral agents 5. Grewal D/C'd and urinating independently 6. Passing BM or flatus 7. Nursing has noted clean dry wound for 24 hrs 8. Upright xrays done, reviewed by spine and are satisfactory Plan: 1. Maintain in [place] brace. Once patient can tolerate a TLSO, would prefer to transition to this, however, do not believe he will tolerate given his other injuries. 2. Can slowly mobilize (dangle feet off bed for now if pain allows) 3. Will need uprights centered at L1 while in brace prior to D/C - ordered for tomorrow 4. NWB LUE 5. Sling to LUE. Scapula fracture to be treated non-operatively 6. Grewal catheter per primary 7. DVT Prophylaxis: per primary 8. Dispo: uncertain 9. Patient signed out to Ortho Spine (Dr. Dumas) and Ortho trauma (myself and Dr. Daniel) for scapula 10. Ortho trauma will sign off of scapula fracture. Please call with questions Tanner Wilks MD 11/28/2012, 9:43 Cosigned by Karen Johnston MD at 11/28/2012 9:57 EST * Dangelo Graff MD - 11/28/2012 0629 EST Trauma Surgery Progress Note Date of Service: 11/28/2012 Events over past 24 hours: MRI showed no evidence of ligamentous injury, CXR, c- spine cleared Assessment: 47 year old male hit a tree while snowboarding. OSH imaging shows thoracic transverse process fractures as well as an L1 fracture with retropulsion. Patient with multiple rib fractures and a tiny right sided pneumothorax seen on CT. Currently patient is hemodynamically stable Plan: - TLS precautions - bed rest until cleared for activity by Orthopedic Surgery - OTHIMS - Ortho recs appreciated. OR vs brace for L1 fracture - Advance diet to regular - SLIV - continue grewal catheter - needs tertiary exam Subjective/Chief Complaint: Still has pain but thinks he might be able to mobilize today; hungry Review of Systems: Pertinent items are noted in the Subjective/HPI Physical Exam/Objective: Vital Signs BP: 131/74 mmHg Pulse: 82 Resp: 18 Temp: 36.8 ??C (98.2 ??F) SpO2: 97 % O2 Flow Rate (L/min): 2 l/min O2 Device: Nasal cannula Exam: Neurologic: alert, oriented, normal speech, no focal findings or movement disorder noted Respiratory: clear to auscultation bilaterally Cardiovascular: Regular, no MRG Abdomen: soft, non-tender; non-distended, normal bowel sounds Musculoskeletal: no palpable long bone deformities Prophylaxis: Pharmacologic Prophylaxis: Heparin 5000 units SQ Tid, SCDs Is PICC or Central line present? No, PICC/Central line not present.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 this examination. There is some irregularity of the right lateral aspect of the T9 vertebral body which also represents a fracture seen on the comparison study. Impression: 1. Fracture body L1. 2. Left 11th and right 10th posterior rib fractures. 3. Numerous thoracic transverse process fractures not well appreciated on this study. 4. Fracture T9 vertebral body I have personally reviewed the images and the above interpretation and agree with the findings. Procedure Note Karen Mcrae MD - 11/26/2012 Mary Moreno Acc: [id number] Date: November 26, 2012. X-RAYS OF THE THORACIC AND LUMBAR SPINE Signs and symptoms: L1 compression fracture. Findings: AP, and lateral views of the lumbar spine as well as AP lateral and sunrise views of the thoracic spine were obtained. A fracture of the L1 vertebral body is present with depression of the right lateral aspect of this vertebral body. The degree of depression is less than 75%. On the outside hospital CT examination there is retropulsion of fracture fragments which is not well appreciated on this study. The remaining vertebral body heights are maintained. Alignment is anatomic. Thoracic vertebral body heights are maintained. There are degenerative changes of the thoracic spine. Fractures of the left 11th and right 10th rib are noted as seen on the outside hospital study. There are numerous transverse process fractures also on the outside hospital CT which are not well appreciated on this examination. There is some irregularity of the right lateral aspect of the T9 vertebral body which also represents a fracture seen on the comparison study. Impression: 1. Fracture body L1. 2. Left 11th and right 10th posterior rib fractures. 3. Numerous thoracic transverse process fractures not well appreciated on this study. 4. Fracture T9 vertebral body I have personally reviewed the images and the above interpretation and agree with the findings. us Tanner Wilks MD IMG DIAGNOSTIC IMAGING ORDERABL ES Final Result * L SPINE 2-3 VIEWS (11/26/2012 20:20 EST) Anatomical Region Laterality Modality Other 11/26/2012 20:2 0 EST 11/26/2012 21:02 EST Narrative 11/26/2012 21:02 EST Mary Moreno Acc: [id number] Date: November 26, 2012. X-RAYS OF THE THORACIC AND LUMBAR SPINE Signs and symptoms: L1 compression fracture. Findings: AP, and lateral views of the lumbar spine as well as AP lateral and sunrise views of the thoracic spine were obtained. A fracture of the L1 vertebral body is present with depression of the right lateral aspect of this vertebral body. The degree of depression is less than 75%. On the outside hospital CT examination there is retropulsion of fracture fragments which is not well appreciated on this study. The remaining vertebral body heights are maintained. Alignment is anatomic. Thoracic vertebral body heights are maintained. There are degenerative changes of the thoracic spine. Fractures of the left 11th and right 10th rib are noted as seen on the outside hospital study. There are numerous transverse process fractures also on the outside hospital CT which are not well appreciated on this examination. There is some irregularity of the right lateral aspect of the T9 vertebral body which also represents a fracture seen on the comparison study. Impression: 1. Fracture body L1. 2. Left 11th and right 10th posterior rib fractures. 3. Numerous thoracic transverse process fractures not well appreciated on this study. 4. Fracture T9 vertebral body I have personally reviewed the images and the above interpretation and agree with the findings. Procedure Note Karen Mcrae MD - 11/26/2012 MorenoMary hinton Acc: [id number] Date: November 26, 2012. X-RAYS OF THE THORACIC AND LUMBAR SPINE Signs and symptoms: L1 compression fracture. Findings: AP, and lateral views of the lumbar spine as well as AP lateral and sunrise views of the thoracic spine were obtained. A fracture of the L1 vertebral body is present with depression of the right lateral aspect of this vertebral body. The degree of depression is less than 75%. On the outside hospital CT examination there is retropulsion of fracture fragments which is not well appreciated on this study. The remaining vertebral body heights are maintained. Alignment is anatomic. Thoracic vertebral body heights are maintained. There are degenerative changes of the thoracic spine. Fractures of the left 11th and right 10th rib are noted as seen on the outside hospital study. There are numerous transverse process fractures also on the outside hospital CT which are not well appreciated on this examination. There is some irregularity of the right lateral aspect of the T9 vertebral body which also represents a fracture seen on the comparison study. Impression: 1. Fracture body L1. 2. Left 11th and right 10th posterior rib fractures. 3. Numerous thoracic transverse process fractures not well appreciated on this study. 4. Fracture T9 vertebral body I have personally reviewed the images and the above interpretation and agree with the findings. Tanner Wilks MD IMG DIAGNOSTIC IMAGING ORDERABL ES Final Result * PORTABLE CHEST 1 VIEW (11/26/2012 19:36 EST) Anatomical Region Laterality Modality Other 11/26/2012 19:3 6 EST 11/26/2012 19:51 EST Narrative 11/26/2012 19:51 EST PORTABLE CHEST 1 VIEW ??Nov 26, 2012 07:36:00 PM Signs and Symptoms/Comments: ??s/p trauma with small b/l pneumos Comparison: Outside hospital chest CT less than one hour prior. Findings: Single view of the chest was obtained. The lung volumes are low. The cardiac silhouette is normal. The pulmonary vasculature is within normal limits given the technique. Ill-defined opacities in the right infrahilar lung corresponds to the area of pulmonary contusion and pneumatocele formation on the outside hospital CT. Linear opacities in the left lower lung most likely represents atelectasis. Given the patient's recumbency the known tiny pleural effusions are not evident on this study. Additionally, the tiny pneumothoraces seen on the outside hospital CT are not appreciated on this study. I have personally reviewed the images and the above interpretation and agree with the findings. Procedure Note Karen Mcrae MD - 11/26/2012 PORTABLE CHEST 1 VIEW Nov 26, 2012 07:36:00 PM Signs and Symptoms/Comments: s/p trauma with small b/l pneumos Comparison: Outside hospital chest CT less than one hour prior. Findings: Single view of the chest was obtained. The lung volumes are low. The cardiac silhouette is normal. The pulmonary vasculature is within normal limits given the technique. Ill-defined opacities in the right infrahilar lung corresponds to the area of pulmonary contusion and pneumatocele formation on the outside hospital CT. Linear opacities in the left lower lung most likely represents atelectasis. Given the patient's recumbency the known tiny pleural effusions are not evident on this study. Additionally, the tiny pneumothoraces seen on the outside hospital CT are not appreciated on this study. I have personally reviewed the images and the above interpretation and agree with the findings. us Jensen Mcmullen MD IMG DIAGNOSTIC IMAGING ORDERA BLES Final Result * SECONDARY READ NEURO CT (11/26/2012 18:58 EST) Anatomical Region Laterality Modality Other 11/26/2012 18:5 8 EST 11/27/2012 11:39 EST Narrative 11/27/2012 11:[address] head and cervical spine performed at [facility] November 26, 2012. Clinical history: 47-year-old male with trauma Comparison: None Technique: Axial images of the brain and cervical spine are presented with sagittal and coronal reformations. Findings: Head: There is no evidence of mass or hemorrhage. Ventricular system is normal in size and configuration for patient's age. Luis-white matter differentiation is well-maintained. No extra-axial collection is seen. Calvarial osseous and scalp soft tissue structures are grossly unremarkable. Cervical spine: There are nondisplaced fractures at the costovertebral junction of the left 2nd and 3rd ribs. Small left apical pneumothorax is seen. There is no evidence of cervical spine fracture. Alignment is anatomic. Impression: 1. No evidence of intracranial hemorrhage. 2. Normal cervical spine. 3. Nondisplaced fractures of the left second and 3rd ribs at the costovertebral junction This report is in concordance with the outside interpretation. Procedure Note 11/27/[address] head and cervical spine performed at [facility] November 26, 2012. Clinical history: 47-year-old male with trauma Comparison: None Technique: Axial images of the brain and cervical spine are presented with sagittal and coronal reformations. Findings: Head: There is no evidence of mass or hemorrhage. Ventricular system is normal in size and configuration for patient's age. Luis-white matter differentiation is well-maintained. No extra-axial collection is seen. Calvarial osseous and scalp soft tissue structures are grossly unremarkable. Cervical spine: There are nondisplaced fractures at the costovertebral junction of the left 2nd and 3rd ribs. Small left apical pneumothorax is seen. There is no evidence of cervical spine fracture. Alignment is anatomic. Impression: 1. No evidence of intracranial hemorrhage. 2. Normal cervical spine. 3. Nondisplaced fractures of the left second and 3rd ribs at the costovertebral junction This report is in concordance with the outside interpretation. us Blayne Lange MD IMG OTHER IMAGING ORDERABLES Final Result * SECONDARY READ AZK CT (11/26/2012 18:55 EST) Anatomical Region Laterality Modality Other 11/26/2012 18:5 5 EST 11/29/2012 16:56 EST Narrative 11/29/2012 16:56 EST SECONDARY READ ??Nov 26, 2012 06:55:00 PM Signs and Symptoms/Comments: ??Imaging Finding Not Addressed in Outside Report; address any abdominal/pelvic injuries- 11/26/12 CT chest/abd/PELVIS (W/ RPT) Technique: Please refer to outside report. Briefly, CT of the abdomen and pelvis was performed after the administration of intravenous contrast. Comparisons: ??None available. Findings: There is an L1 burst fracture involving superior endplate, with retropulsion of a fracture fragment and narrowing of the central canal. ??No additional fractures identified. L2 and L3 limbus vertebrae are noted. There is heterotopic soft tissue ossification medial to the right proximal femur. A few small scattered hepatic cysts are noted. ??The gallbladder, pancreas, spleen, adrenal glands, and kidneys are without significant abnormality. A left renal cyst is noted. There is no acute bowel pathology. There is no intra-abdominal free air or free fluid. ??There are no pelvic masses. The urinary bladder, prostate, and seminal vesicles are unremarkable. There is no extravasation of contrast from the kidneys on the delayed images. Aorta is normal in caliber. Minimal atherosclerotic changes are noted. There are no pathologically enlarged lymph nodes in the abdomen or pelvis. ??For description of the lung bases, please refer to secondary to the outside chest CT performed simultaneously. Impression: 1. L1 burst fracture involving the superior endplate, with retropulsion of a fracture fragment and narrowing of the central canal. 2. No evidence of ??solid organ injury. These findings do not significantly differ from the outside report. I have personally reviewed the images and the above interpretation and agree with the findings. Procedure Note Mary Rizzo MD - 11/29/2012 SECONDARY READ Nov 26, 2012 06:55:00 PM Signs and Symptoms/Comments: Imaging Finding Not Addressed in Outside Report; address any abdominal/pelvic injuries- 11/26/12 CT chest/abd/PELVIS (W/ RPT) Technique: Please refer to outside report. Briefly, CT of the abdomen and pelvis was performed after the administration of intravenous contrast. Comparisons: None available. Findings: There is an L1 burst fracture involving superior endplate, with retropulsion of a fracture fragment and narrowing of the central canal. No additional fractures identified. L2 and L3 limbus vertebrae are noted. There is heterotopic soft tissue ossification medial to the right proximal femur. A few small scattered hepatic cysts are noted. The gallbladder, pancreas, spleen, adrenal glands, and kidneys are without significant abnormality. A left renal cyst is noted. There is no acute bowel pathology. There is no intra-abdominal free air or free fluid. There are no pelvic masses. The urinary bladder, prostate, and seminal vesicles are unremarkable. There is no extravasation of contrast from the kidneys on the delayed images. Aorta is normal in caliber. Minimal atherosclerotic changes are noted. There are no pathologically enlarged lymph nodes in the abdomen or pelvis. For description of the lung bases, please refer to secondary to the outside chest CT performed simultaneously. Impression: 1. L1 burst fracture involving the superior endplate, with retropulsion of a fracture fragment and narrowing of the central canal. 2. No evidence of solid organ injury. These findings do not significantly differ from the outside report. I have personally reviewed the images and the above interpretation and agree with the findings. us Blayne Lange MD IM OTHER IMAGING ORDERABLES Final Result * SECONDARY READ CHEST CT (11/26/2012 18:48 EST) Anatomical Region Laterality Modality Other 11/26/2012 18:4 8 EST 11/27/2012 10:53 EST Narrative 11/27/2012 10:53 EST SECONDARY READ CHEST ??Nov 26, 2012 06:48:00 PM Signs and Symptoms/Comments: ??Imaging Finding Not Addressed in Outside Report; address any abdominal/pelvic injuries- 11/26/12 CT chest/abd/pel (W/ PRELIM RPT) This is a secondary read chest CT scan performed at the request of Dr. Blayne Lange. Technical factors: Examination was performed at [facility] on 11/26/2012. Following IV contrast administration, images reformatted at 3 mm collimation were obtained from the lower neck through the upper abdomen. Findings: The soft tissues of the chest wall are unremarkable. There are several low-attenuation thyroid nodules. There is a very small amount of anterior mediastinal air present. The heart and pericardium appear grossly normal. There is extensive pulsation artifact involving the aortic root. The airways are normal. There is a focal region of lung contusion in the right lower lobe, associated with a small posttraumatic air cyst. Otherwise, there is dependent atelectasis. There is a small dependently layering right pleural effusion, a small amount of right pleural air as well as some areas of extrapleural air on the right. There is a comminuted fracture of the posterior 10th rib and a fracture of the L1 vertebral body with a retropulsed fragment in the spinal canal. In addition, there are multiple nondisplaced left rib fractures, multiple fractures of the midthoracic left transverse processes, and a anterior compression fracture of the T9 vertebral body. There is a fracture involving the body of the left scapula, mildly displaced. Impression: 1. Lung contusion with posttraumatic air cyst in the right lower lobe. 2. Fracture of the right posterior 10th rib. I suspect other subtle fractures on the right but none are displaced. Additional fractures are of several left-sided ribs, several left thoracic spine transverse processes, and a mildly displaced left scapular body fracture. 3. Fracture of the L1 vertebral body with a retropulsed fragment into the spinal canal. 4. Small amount of pneumomediastinum. 5. Tiny right pneumothorax and small amounts of extrapleural air. 6. Small dependent right pleural effusion This report does not differ significantly from the outside report. Procedure Note 11/27/2012 SECONDARY READ CHEST Nov 26, 2012 06:48:00 PM Signs and Symptoms/Comments: Imaging Finding Not Addressed in Outside Report; address any abdominal/pelvic injuries- 11/26/12 CT chest/abd/pel (W/ PRELIM RPT) This is a secondary read chest CT scan performed at the request of Dr. Blayne Lange. Technical factors: Examination was performed at [facility] on 11/26/2012. Following IV contrast administration, images reformatted at 3 mm collimation were obtained from the lower neck through the upper abdomen. Findings: The soft tissues of the chest wall are unremarkable. There are several low-attenuation thyroid nodules. There is a very small amount of anterior mediastinal air present. The heart and pericardium appear grossly normal. There is extensive pulsation artifact involving the aortic root. The airways are normal. There is a focal region of lung contusion in the right lower lobe, associated with a small posttraumatic air cyst. Otherwise, there is dependent atelectasis. There is a small dependently layering right pleural effusion, a small amount of right pleural air as well as some areas of extrapleural air on the right. There is a comminuted fracture of the posterior 10th rib and a fracture of the L1 vertebral body with a retropulsed fragment in the spinal canal. In addition, there are multiple nondisplaced left rib fractures, multiple fractures of the midthoracic left transverse processes, and a anterior compression fracture of the T9 vertebral body. There is a fracture involving the body of the left scapula, mildly displaced. Impression: 1. Lung contusion with posttraumatic air cyst in the right lower lobe. 2. Fracture of the right posterior 10th rib. I suspect other subtle fractures on the right but none are displaced. Additional fractures are of several left-sided ribs, several left thoracic spine transverse processes, and a mildly displaced left scapular body fracture. 3. Fracture of the L1 vertebral body with a retropulsed fragment into the spinal canal. 4. Small amount of pneumomediastinum. 5. Tiny right pneumothorax and small amounts of extrapleural air. 6. Small dependent right pleural effusion This report does not differ significantly from the outside report. us Blayne Lange MD IMG OTHER IMAGING ORDERABLES Final Result * SECONDARY READ BODY CT (11/26/2012 18:38 EST) Anatomical Region Laterality Modality Other 11/26/2012 18:3 8 EST 11/27/2012 11:00 EST Narrative 11/27/2012 11:00 EST SECONDARY READ BODY ??Nov 26, 2012 06:38:00 PM Signs and Symptoms/Comments: ??Imaging Finding Not Addressed in Outside Report; address any abdominal/pelvic injuries- 11/26/12 CT CHEST/ABD/PEL (W/ PRELIM RPT) This is a secondary read CT of the abdomen and pelvis. CT of the abdomen and pelvis performed after IV contrast administration. Delayed images were obtained through the kidneys. Please see the separate secondary read CT of the chest. Findings: The lower esophagus, stomach, spleen, pancreas, and adrenal glands are normal. There are a few small cysts in the liver but no evidence of hepatic injury. The gallbladder is normal. The kidneys are normal The bowel loops appear normal. The retroperitoneum is unremarkable. The bladder is distended but otherwise normal. No free fluid or free air seen in the abdomen or pelvis. Multiple osseous injuries are identified, including multiple right and left rib fractures, a burst type fracture of the L1 vertebral body with a retropulsed fragment, and a compression fracture of the T9 vertebral body. There is an exophytic, partly ossified lesion arising from the lesser trochanter of the right femur, which probably reflects an osteochondroma or possibly an ossifying lipoma. Impression: 1. No solid organ or hollow viscous injury injury identified. 2. Multiple fractures including burst fracture of L1 with a retropulsed fragment into the spinal canal, a compression fracture of the T9 vertebral body, and multiple bilateral rib fractures. 3. Incidental finding of an osseous exophytic lesion arising from the lesser trochanter of the right femur; differential diagnosis includes an ossifying lipoma or osteochondroma. This finding is not described in the outside report. Procedure Note 11/27/2012 SECONDARY READ BODY Nov 26, 2012 06:38:00 PM Signs and Symptoms/Comments: Imaging Finding Not Addressed in Outside Report; address any abdominal/pelvic injuries- 11/26/12 CT CHEST/ABD/PEL (W/ PRELIM RPT) This is a secondary read CT of the abdomen and pelvis. CT of the abdomen and pelvis performed after IV contrast administration. Delayed images were obtained through the kidneys. Please see the separate secondary read CT of the chest. Findings: The lower esophagus, stomach, spleen, pancreas, and adrenal glands are normal. There are a few small cysts in the liver but no evidence of hepatic injury. The gallbladder is normal. The kidneys are normal The bowel loops appear normal. The retroperitoneum is unremarkable. The bladder is distended but otherwise normal. No free fluid or free air seen in the abdomen or pelvis. Multiple osseous injuries are identified, including multiple right and left rib fractures, a burst type fracture of the L1 vertebral body with a retropulsed fragment, and a compression fracture of the T9 vertebral body. There is an exophytic, partly ossified lesion arising from the lesser trochanter of the right femur, which probably reflects an osteochondroma or possibly an ossifying lipoma. Impression: 1. No solid organ or hollow viscous injury injury identified. 2. Multiple fractures including burst fracture of L1 with a retropulsed fragment into the spinal canal, a compression fracture of the T9 vertebral body, and multiple bilateral rib fractures. 3. Incidental finding of an osseous exophytic lesion arising from the lesser trochanter of the right femur; differential diagnosis includes an ossifying lipoma or osteochondroma. This finding is not described in the outside report. us Blayne Lange MD IMG OTHER IMAGING ORDERABLES Final Result * (ABNORMAL) BLOOD GAS, CG4 ISTAT (11/26/2012 17:34 EST) pH, i-STAT 7.28(L) 7.35 - 7.45 [facility] pCO2, i-STAT 51(H) 35 - 45 mmHg [facility] pO2, i-STAT 43(L) 80 - 105 mmHg [facility] TCO2, i-STAT 26 mEq/L [facility] O2 Saturation 72 % [facility] Lactate, i-STAT 0.7 0.7 - 2.1 mmol/L [facility] Base Deficit, i-STAT 3 [facility] FIO2 36 [facility] Sample Type VENOUS [facility] [place] [id number] [facility] Comment: Test performed by FACT. For non-arterial reference ranges, please see ISTAT procedure. 11/26/2012 17:3 4 EST 11/26/2012 18:08 EST us Provider Unknown MD CHEMISTRY & BLOOD GAS ORDERA BLES Final Result Performing Organization Address City/State/[facility] Co de Phone Number [facility] [address] [place] [address] documented in this encounter Visit Diagnoses Diagnosis Multiple trauma Injury, other and unspecified, other specified sites, including multiple L2 vertebral fracture (HCC-CMS) Closed fracture of lumbar vertebra without mention of spinal cord injury Multiple trauma Injury, other and unspecified, other specified sites, including multiple L2 vertebral fracture (HCC-CMS) Closed fracture of lumbar vertebra without mention of spinal cord injury Snowboarding accident Fall from snowboard Left scapula fracture Closed fracture of unspecified part of scapula Fracture of transverse process of thoracic vertebra (HCC-CMS) Closed fracture of dorsal (thoracic) vertebra without mention of spinal cord injury Wedge compression fracture of T9 vertebra (HCC-CMS) Closed fracture of dorsal (thoracic) vertebra without mention of spinal cord injury documented in this encounter Administered Medications Inactive Administered Medications - up to 3 most recent administrations Medication Order MAR Action Action Date Dose Rate Site acetaminophen (TYLENOL) tablet 650 mg 650 mg, oral, EVERY 4 HOURS, First dose (after last modification) on 11/27/12 at 0800, Until Discontinued, STAT Given 11/30/2012 11:05 EST 650 mg Given 11/30/2012 6:02 EST 650 mg Given 11/29/2012 23:46 EST 650 mg dextrose 5 %-0.45 % sodium chloride infusion at 125 mL/hr, intravenous, CONTINUOUS, Starting on 11/26/12 at 2200, Until 11/28/12 at 2029, STAT Rate Documented 11/28/2012 16:57 EST 125 mL/hr New Bag 11/28/2012 13:24 EST 125 mL/hr New Bag 11/28/2012 4:57 EST 125 mL/hr docusate sodium (COLACE) capsule 100 mg 100 mg, oral, DAILY, First dose on Wed11/27/12 at 0900, Until Discontinued, STAT Given 11/30/2012 9:05 EST 100 mg Given 11/29/2012 8:40 EST 100 mg Given 11/28/2012 8:40 EST 100 mg heparin injection 5,000 Units 5,000 Units, subcutaneous, EVERY 8 HOURS, First dose on Wed11/27/12 at 0000, Until Discontinued, STAT Given 11/30/2012 9:05 EST 5,000 Units Given 11/29/2012 23:46 EST 5,000 Units Given 11/29/2012 13:27 EST 5,000 Units HYDROmorphone (DILAUDID) tablet 2-4 mg 2-4 mg, oral, EVERY 3 HOURS PRN, Starting on Wed11/27/12 at 0839, Until Wed11/30/12 at 1605, Pain, Routine Given 11/30/2012 13:11 EST 4 mg Given 11/29/2012 16:01 EST 4 mg Given 11/29/2012 9:36 EST 4 mg HYDROmorphone (PF) (DILAUDID) 1 mg/mL injection 0.2-0.4 mg 0.2-0.4 mg, intravenous, EVERY 4 HOURS PRN, Starting on 11/26/12 at 2130, Until Wed11/29/12 at 1159, Pain, STAT Given 11/27/2012 16:44 EST 0.4 mg Given 11/27/2012 11:54 EST 0.4 mg Given 11/27/2012 7:46 EST 0.4 mg HYDROmorphone (PF) (DILAUDID) 1 mg/mL injection 0.5-1 mg 0.5-1 mg, intravenous, EVERY 4 HOURS PRN, Starting on 11/26/12 at 1815, Until 11/26/12 at 2130, Pain, STAT Given 11/26/2012 18:37 EST 1 mg HYDROmorphone (PF) (DILAUDID) 1 mg/mL injection 1 mg 1 mg, intravenous, NOW X1, 1 dose, On 11/26/12 at 2000, STAT Given 11/26/2012 19:42 EST 0.5 mg morphine (MS CONTIN) CR tablet 15 mg 15 mg, oral, EVERY 12 HOURS, 8 doses, First dose on 11/27/12 at 0900, Last dose on Wed11/30/12 at 2100, Routine Given 11/29/2012 8:40 EST 15 mg Given 11/28/2012 20:06 EST 15 mg Given 11/28/2012 8:40 EST 15 mg ondansetron (PF) (ZOFRAN) injection 2-4 mg 2-4 mg, intravenous, EVERY 6 HOURS PRN, Starting on 11/26/12 at 2130, Until 11/27/12 at 0729, Nausea, STAT Given 11/27/2012 3:09 EST 4 mg ondansetron (PF) (ZOFRAN) injection 2-4 mg 2-4 mg, intravenous, EVERY 4 HOURS PRN, Starting on 11/27/12 at 0730, Until Wed11/30/12 at 1605, Nausea, STAT Given 11/27/2012 7:45 EST 4 mg senna (SENOKOT) tablet 1 Tab 1 Tablet, oral, AT BEDTIME, First dose on Wed11/28/12 at 2100, Until Discontinued, Routine Given 11/29/2012 23:4 6 EST 1 Tablet Given 11/28/2012 20:06 EST 1 Tablet documented in this encounter Active and Recently Administered Medications Times are shown in EST. Scheduled Medication Order 11/28/2012 11/29/2012 11/30/2012 acetaminophen (TYLENOL) tablet 650 mg 650 mg, oral, EVERY 4 HOURS, First dose (after last modification) on Wed11/27/12 at 0800, Until Discontinued, STAT 0457 (Given - Provider: Amor Lockwood RN)0840 (Given - Provider: Wendi Durham, RN)1223 (Given - Provider: Wendi Durham, RN)1603 (Given - Provider: Yeni Peck, RN)2005 (Given - Provider: Yeni Peck RN) 0002 (Given - Provider: Berta Grant RN)0459 (Given - Provider: Berta Grant, WILLIAMS)0840 (Given - Provider: Sybil Leyva, RN)1101 (Given - Provider: Sybil Leyva, WILLIAMS)1601 (Given - Provider: Heidi Woods RN)2014 (Not Given - Provider: Berta Grant RN - Reason: Patient/family refused)2346 (Given - Provider: Berta Grant RN) 0602 (Given - Provider: Jeaneth Rios)0709 (Canceled Entry - Provider: Jeaneth Rios)1105 (Given - Provider: Marlyn Coleman, WILLIAMS) docusate sodium (COLACE) capsule 100 mg(Linked Group 1) 100 mg, oral, DAILY, First dose on Wed11/27/12 at 0900, Until Discontinued, STAT 0840 (Given - Provider: Wendi Durham RN) 0840 (Given - Provider: Sybil Leyva, WILLIAMS) 0905 (Given - Provider: Marlyn Coleman, WILLIAMS) heparin injection 5,000 Units (CANCELED) 5,000 Units, subcutaneous, EVERY 8 HOURS, First dose on Wed11/27/12 at 0000, Until Discontinued, STAT 0619 (Given - Provider: Amor Lockwood RN)1452 (Given - Provider: Wendi Durham, WILLIAMS)2005 (Given - Provider: Yeni Peck RN) 0506 (Given - Provider: Berta Grant, WILLIAMS)1327 (Given - Provider: Sybil Leyva, WILLIAMS)2346 (Given - Provider: Berta Grant, WILLIAMS) 0905 (Given - Provider: Marlyn Coleman, WILLIAMS) morphine (MS CONTIN) CR tablet 15 mg (CANCELED) 15 mg, oral, EVERY 12 HOURS, 8 doses, First dose on Wed11/27/12 at 0900, Last dose on Wed11/30/12 at 2100, Routine 0840 (Given - Provider: Wendi Durham, WILLIAMS)2005 (Given - Provider: Yeni Peck, WILLIAMS) 0840 (Given - Provider: Sybil Leyva, WILLIAMS) senna (SENOKOT) tablet 1 Tab (CANCELED) 1 Tablet, oral, AT BEDTIME, First dose on Wed11/28/12 at 2100, Until Discontinued, Routine 2005 (Given - Provider: Yeni Peck, WILLIAMS) 2346 (Given - Provider: Berta Grant, WILLIAMS) Continuous Medication Order 11/28/2012 11/29/2012 11/30/2012 dextrose 5 %-0.45 % sodium chloride infusion (CANCELED) at 125 mL/hr, intravenous, CONTINUOUS, Starting on 11/26/12 at 2200, Until 11/28/12 at 2029, STAT 0457 (New Bag - Provider: Amor Lockwood, RN)1324 (New Bag - Provider: Wendi Durham, RN)1657 (Rate Documented - Provider: Yeni Peck RN)203 (Completed - Provider: Yeni Peck RN) PRN Medication Order 11/28/2012 11/29/2012 11/30/2012 HYDROmorphone (DILAUDID) tablet 2-4 mg 2-4 mg, oral, EVERY 3 HOURS PRN, Starting on 11/27/12 at 0839, Until 11/30/12 at 1605, Pain, Routine 0909 (Given - Provider: Wendi Durham, WILLIAMS)1707 (Given - Provider: Yeni Peck RN)2006 (Given - Provider: Yeni Peck RN) 0936 (Given - Provider: Sybil Leyva, WILLIAMS)1601 (Given - Provider: Heidi Woods, WILLIAMS) 1311 (Given - Provider: Marlyn Coleman RN) Linked Groups Order Group 1: docusate sodium (COLACE) capsule 100 mgJump to med 100 mg, oral, DAILY, First dose on 11/27/12 at 0900, Until Discontinued, STAT Or docusate (COLACE) liquid 100 mg (CANCELED) 100 mg, per ng tube, DAILY, First dose on 11/27/12 at 0900, Until Discontinued, STAT documented in this encounter Orders Medications Ordered That Jb ht Not Have Been Administered Count Last Ordered Date First Ordered Date bisacodyl (DULCOLAX) suppository 10 mg 1 acetaminophen (TYLENOL) tablet 650 mg docusate (COLACE) liquid 100 mg 1 3 HYDROmorphone (DILAUDID) tablet 2-4 mg 1 HYDROmorphone (PF) (DILAUDID ) 1 mg/mL injection 1 11/26/2012 HYDROmorphone (PF) (DILAUDID ) 1 mg/mL injection 0.2-0.6 mg 1 11/26/2012 ondansetron (PF) (ZOFRAN) 4 mg/2 mL injection 1 11/26/2012 Nursing Count Last Ordered Date First Orde red Date MEASURE HEIGHT 1 11/26/2012 MEASURE WEIGHT 1 11/26/2012 OT Count Last Ordered Date First Orde red Date OT EVALUATION AND TREAT 1 11/28/2012 OT HEAD INJURY MINI SCREEN 1 11/26/2012 PT Count Last Ordered Date First Orde red Date PT EVALUATION AND TREAT 1 11/26/2012 Admission Count Last Ordered Date First Orde red Date STATUS: INPATIENT ACUTE ADMISSION 1 013 Transfer Count Last Ordered Date First Orde red Date NOTIFY PPS OF DISCHARGE COMPLETE 1 11/30/19 13 CHANGE ATTENDING TO: 1 11/29/2012 TRANSFER PATIENT 2 11/29/2012 NOTIFY PPS OF ROOM CHANGE COMPLETE 1 2012 PPS NOTIFICATION OF PATIENT ARRIVAL ON UNIT 2 11/26/2012 TEACHING SERVICE 1 11/26/2012 Discharge Count Last Ordered Date First Orde red Date DISCHARGE PATIENT 1 11/30/2012 Equipment Count Last Ordered Date First Orde red Date RAISED TOILET SEAT STANDARD 1 11/29/2012 documented in this encounter Care Teams Program Medical Director Relationship Specialty Start Date End Date Tony Bose MD [address] [place] [id number] PCP - General 11/26/12 documented as of this encounter
[2024-11-10 07:57] LABS: Calculated LDL 113 mg/dL (<100); Cholesterol 178 mg/dL (<200); HDL Cholesterol 47 mg/dL (40-60); Triglyceride 93 mg/dL (<150)
== END 2024-11-10 01:28 | disposition home or self-care (01) ==
LOC: LBO 01:27
PROVIDERS: PCP Family Medicine; Visit Provider Family Medicine
DX: Z13.6 Encounter for screening for cardiovascular disorders (principal)
CPT/HCPCS: 36415; 80061

== ENCOUNTER 2025-01-26 00:41 | Outpatient (CLI) | payer BC, SELFPAY ==
[2025-01-26] MEDS: Inhaler, Assist Device 1 EACH MC (09:36)
[2025-01-26] MEDS: Levalbuterol HFA 15 GM INH 4 PUFF IH (09:36)
--- NOTE | 2025-01-29 14:39 | W.PFT ---
Date of service: 01/26/25 Time of Service: 08:08 Pulmonary Function Test Result Indications: Dyspnea Interpretation Spirometry: Moderate airflow limitation. No bronchodilator response Lung Volumes: Air trapping Diffusion Capacity: Normal diffusion Airway Pressure: Increased airways resistance Impression Moderate airflow obstruction with air trapping and a normal diffusion. Clinical Correlation therefore is recommended.
== END 2025-01-26 00:42 | disposition home or self-care (01) ==
LOC: RT 00:42
PROVIDERS: PCP Family Medicine; Visit Provider Student in an Organized Health Care Education/Training Program
DX: R06.00 Dyspnea, unspecified (principal)
CPT/HCPCS: 94060; 94726; 94729

== ENCOUNTER 2025-08-30 15:20 | Outpatient (CLI) | payer BC, SELFPAY ==
--- NOTE | 2025-08-30 15:00 | DI.RAD_ITS ---
Exam(s) XR LUMBAR SPINE COMPLETE EXAM: XR LUMBAR SPINE COMPLETE CLINICAL HISTORY: Acute low back pain, previous fractures, M54.50. TECHNIQUE: 2D digital imaging was performed. Five views. COMPARISON: CT CT CHEST PE CTA from 09/27/2024 CR,XR XR CHEST 2V PA LATERAL from 10/25/2024 FINDINGS: BONES: No fracture or destructive lesion. There is an old compression fracture of the right superior aspect of L1. The remaining vertebral bodies are maintained in height. No facet hypertrophy identified . DISKS: There is mild narrowing of the L1-2 and L2-3 disc spaces with small endplate osteophytes. There are more prominent osteophytes at T12-L1. There is moderate narrowing of the L4-5 disc space. The remaining intervertebral disc spaces are maintained. ALIGNMENT: There is a mild levoscoliosis. SOFT TISSUE: Normal. IMPRESSION: Old mild compression fracture of L1. Degenerative disc changes and mild scoliosis. DATA REPOSITORY: RADIATION DOSE DELIVERED:
== END 2025-08-30 15:40 ==
LOC: DI 15:21
PROVIDERS: PCP Family Medicine; Visit Provider Family Medicine
DX: M51.360 Other intervertebral disc degeneration, lumbar region with discogenic back pain only (principal); M41.26 Other idiopathic scoliosis, lumbar region
CPT/HCPCS: 72110